=== PATIENT | male | born 1950 | race Caucasian/White ===

== ENCOUNTER 2018-11-17 22:56 | Emergency (ER) | payer OTHER ==
[~2018-11-17] VITALS: Ht 165.1 cm; Wt 118.4 kg
[~2018-11-17 22:56] MED LIST: AMLO5 PO; COMBIVENT RESPIM4 GM INH; CRUTCH2 XX; FLUSAL2505 INH; Flonase 0.05% N16 GM; HYDACE10B; HYDACE10B PO; HYDACE5325 PO; HYDCHL25; HYDR1TAB94 PO; IBUP600 PO; INSULANPEN SC; LISI20 PO; METF500 PO; OMEG1CAP30 PO; PIOG15 PO; PREG50 PO; Percocet 5-3251 EACH PO; Prednisone20 MG PO; RXCLIN PO; Robaxin500 MG PO; SULTRIDS PO; Simvastatin20 MG PO; TRIA80TC TOP
[2018-11-18] MEDS ORDERED: BUDE10.22 INH (01:55)
== END 2018-11-18 03:04 | disposition home or self-care (01) ==
LOC: ER 22:56
DX: R44.1 Visual hallucinations (principal); Z88.8 Allergy status to other drugs, medicaments and biological substances; Z79.899 Other long term (current) drug therapy; Z79.4 Long term (current) use of insulin; E11.9 Type 2 diabetes mellitus without complications; I10 Essential (primary) hypertension; Z87.891 Personal history of nicotine dependence
CPT/HCPCS: 99283

== ENCOUNTER 2020-09-03 11:26 | Emergency (ER) | payer OTHER ==
[~2020-09-03] VITALS: Ht 165.1 cm; Wt 103.4 kg
[~2020-09-03 11:26] MED LIST changes: +BUDE10.22 INH
[2020-09-03 12:14] LABS: BASOPHILS ABSOLUTE AUTO 0.04 K/mm3 (0.00-0.23); BASOPHILS PERCENT AUTO 1 % (0-2); EOSINOPHILS ABSOLUTE AUTO 0.14 K/mm3 (0.00-0.68); EOSINOPHILS PERCENT AUTO 3 % (0-6); Hematocrit 44.2 % (37.0-53.0); Hemoglobin 15.1 g/dL (13.5-17.5); IMMATURE GRAN ABSOLUTE AUTO 0.01 K/mm3 (0.00-0.10); IMMATURE GRAN PERCENT AUTO 0 % (0-1); LYMPHOCYTES ABSOLUTE AUTO 1.34 K/mm3 (0.84-5.20); LYMPHOCYTES PERCENT AUTO 27 % (21-46); MONOCYTES ABSOLUTE AUTO 0.44 K/mm3 (0.16-1.47); MONOCYTES PERCENT AUTO 9 % (4-13); Mean Corpuscular HGB 32.1 pg (26.0-34.0); Mean Corpuscular HGB Conc 34.2 g/dL (31.5-36.5); Mean Corpuscular Volume 94 fL (80-100); Mean Platelet Volume 8.4 fL (9.1-12.4); NEUTROPHILS ABSOLUTE AUTO 2.98 K/mm3 (1.96-9.15); NEUTROPHILS PERCENT AUTO 60 % (41-73); Platelet Count 246 K/mm3 (150-400); RDW Coefficient Variation 12.6 % (11.7-14.2); White Blood Cell Count 4.95 K/mm3 (4.00-11.30)
[2020-09-03 12:37] LABS: Alanine Aminotransfer (ALT/SGP 28 U/L (12-78); Albumin/Globulin Ratio 1.1 (0.8-1.8); Alk Phos 126 U/L (50-136); Anion Gap 5 mmol/L (6-16); Aspartate Aminotrans (AST/SGOT 20 U/L (12-37); Bilirubin, Total 0.8 mg/dL (0.1-1.0); Blood Urea Nitrogen 21 mg/dL (8-24); Bun/Creatinine Ratio 28.3 (12.0-20.0); C-REACTIVE PROTEIN, EXT RANGE 0.725 mg/dL (0.000-0.300); CO2, Blood 28 mmol/L (21-32); Calcium, Blood 9.2 mg/dL (8.5-10.1); Chloride, Blood 110 mmol/L (98-108); Creatinine, Blood 0.74 mg/dL (0.60-1.20); Globulin, Blood 3.8 g/dL (2.2-4.0); Glomerular Filtration Rate >60 (60-); Glucose, Blood 120 mg/dL (70-99); Potassium, Blood 3.7 mmol/L (3.5-5.5); Sodium, Blood 143 mmol/L (136-145); Total Protein, Blood 7.8 g/dL (6.4-8.2)
[2020-09-03] MEDS ORDERED: AMLO5 PO (12:58)
[2020-09-03] MEDS ORDERED: Bactrim Ds Tab1 EACH PO (14:41)
[2020-09-03] MEDS ORDERED: CEPH500 PO (14:41)
== END 2020-09-03 14:49 | disposition home or self-care (01) ==
LOC: ER 11:26
PROVIDERS: Physician Assistant
DX: L03.115 Cellulitis of right lower limb (principal); F22 Delusional disorders; S80.811A Abrasion, right lower leg, initial encounter; E11.9 Type 2 diabetes mellitus without complications; J44.9 Chronic obstructive pulmonary disease, unspecified; Z88.6 Allergy status to analgesic agent; Z79.4 Long term (current) use of insulin; Z87.891 Personal history of nicotine dependence; Z79.899 Other long term (current) drug therapy; X58.XXXA Exposure to other specified factors, initial encounter
CPT/HCPCS: 36415; 80053; 85025; 85651; 86140; 99283; A9270-GY

== ENCOUNTER 2021-06-04 07:29 | Day surgery (SDC) | payer OTHER ==
[~2021-06-04] VITALS: Ht 165.1 cm; Wt 96.1 kg
[~2021-06-04 07:29] MED LIST changes: +Bactrim Ds Tab1 EACH PO; +CEPH500 PO; +DICLOFENAC SOD100 GM; +FLUT.05NI; +IBU600 M1; +INSULANI; +SYMBICORT 80-10.2 GM
[2021-06-04] MEDS ORDERED: ASPI81CH PO (08:33)
--- NOTE | 2021-06-04 08:40 | NUR ---
06/04/21 0840 Claribel Ely (Alena MONDRAGONET IN AT 0820.
== END 2021-06-04 10:00 | disposition home or self-care (01) ==
LOC: ORSCSDS 07:29
PROVIDERS: Ophthalmology
PROC: 08RJ3JZ Replacement of Right Lens with Synthetic Substitute, Percutaneous Approach (ICD-10-PCS; principal; 2021-06-04 09:15)
DX: H25.11 Age-related nuclear cataract, right eye (principal); I10 Essential (primary) hypertension; E11.9 Type 2 diabetes mellitus without complications; Z79.899 Other long term (current) drug therapy; E66.9 Obesity, unspecified; Z68.34 Body mass index [BMI] 34.0-34.9, adult
CPT/HCPCS: 82947; J2001; J2250; J3010; J3301; J7040; V2632

== ENCOUNTER 2021-06-25 10:14 | Day surgery (SDC) | payer OTHER ==
[~2021-06-25] VITALS: Ht 165.1 cm; Wt 92.9 kg
[~2021-06-25 10:14] MED LIST changes: +ASPI81CH PO
--- NOTE | 2021-06-25 13:14 | NUR ---
06/25/21 1314 Agustin Browning CALL LIGHT WITHIN REACH. EYE DROP AND PLEDGETT PLACED AT 1300.
== END 2021-06-25 14:29 | disposition home or self-care (01) ==
LOC: ORSCSDS 10:14
PROVIDERS: Ophthalmology
PROC: 08RK3JZ Replacement of Left Lens with Synthetic Substitute, Percutaneous Approach (ICD-10-PCS; principal; 2021-06-25 12:00)
DX: H25.12 Age-related nuclear cataract, left eye (principal); I10 Essential (primary) hypertension; E11.9 Type 2 diabetes mellitus without complications; E66.9 Obesity, unspecified; Z68.34 Body mass index [BMI] 34.0-34.9, adult; Z79.82 Long term (current) use of aspirin; Z79.899 Other long term (current) drug therapy
CPT/HCPCS: 82947; J2001; J2250; J3010; J3301; J7040; V2632

== ENCOUNTER 2022-03-29 12:55 | Emergency (ER) | payer OTHER ==
[~2022-03-29] VITALS: Ht 165.1 cm; Wt 84.8 kg
[2022-03-29] MEDS ORDERED: SULTRIDS PO (16:05)
[2022-03-29] MEDS ORDERED: CEPH500 PO (16:05)
== END 2022-03-29 16:26 | disposition home or self-care (01) ==
LOC: ER 12:55
DX: L03.116 Cellulitis of left lower limb (principal); L03.115 Cellulitis of right lower limb; F22 Delusional disorders; E11.9 Type 2 diabetes mellitus without complications; I10 Essential (primary) hypertension; J44.9 Chronic obstructive pulmonary disease, unspecified; Z87.891 Personal history of nicotine dependence
CPT/HCPCS: 36415; A9270

== ENCOUNTER 2023-07-12 13:59 | Inpatient (IN) | payer OTHER ==
[~2023-07-12] VITALS: Ht 165.1 cm; Wt 66.4 kg
[2023-07-12 16:13] LABS: Source, Urine Clean Catch
[2023-07-12 16:23] LABS: Appearance, Urine Bloody (Clear); Bilirubin, Urine Neg (Neg); Blood, Urine 5+ (Neg); Color, Urine Red (P-Yellow); Glucose Qualitative, Urine Neg (Neg); Ketones, Urine 1+ (Neg); Leukocyte Esterase, Urine 3+ (Neg); Nitrite, Urine Neg (Neg); Protein, Urine 4+ (Neg); Urobilinogen, Urine NORM (Normal)
[2023-07-12 16:35] LABS: Bacteria Many /hpf; Red Blood Cells, Urine TNTC /hpf (0-2); Squamous Epithelial Cells Not Seen /hpf (Few); White Blood Cells, Urine TNTC /hpf (0-5)
[2023-07-12 19:21] LABS: Albumin, Blood 2.8 g/dL (3.4-5.0); Albumin/Globulin Ratio 0.5 (0.8-1.8); Bilirubin, Total 0.3 mg/dL (0.1-1.0); Bun/Creatinine Ratio 17.5 (12.0-20.0); Calcium, Blood 8.1 mg/dL (8.5-10.1); Creatinine, Blood 3.31 mg/dL (0.60-1.20); Globulin, Blood 5.2 g/dL (2.2-4.0); Potassium, Blood 4.9 mmol/L (3.5-5.5)
[2023-07-12 20:32] LABS: BASOPHILS ABSOLUTE AUTO 0.08 K/mm3 (0.00-0.23); BASOPHILS PERCENT AUTO 1 % (0-2); EOSINOPHILS ABSOLUTE AUTO 0.15 K/mm3 (0.00-0.68); EOSINOPHILS PERCENT AUTO 3 % (0-6); Hematocrit 25.7 % (37.0-53.0); Hemoglobin 8.1 g/dL (13.5-17.5); IMMATURE GRAN ABSOLUTE AUTO 0.02 K/mm3 (0.00-0.10); IMMATURE GRAN PERCENT AUTO 0 % (0-1); LYMPHOCYTES ABSOLUTE AUTO 1.52 K/mm3 (0.84-5.20); LYMPHOCYTES PERCENT AUTO 25 % (21-46); MONOCYTES ABSOLUTE AUTO 0.85 K/mm3 (0.16-1.47); MONOCYTES PERCENT AUTO 14 % (4-13); Mean Corpuscular HGB 31.5 pg (26.0-34.0); Mean Corpuscular HGB Conc 31.5 g/dL (31.5-36.5); Mean Corpuscular Volume 100 fL (80-100); NEUTROPHILS ABSOLUTE AUTO 3.43 K/mm3 (1.96-9.15); NEUTROPHILS PERCENT AUTO 57 % (41-73); Platelet Count 384 K/mm3 (150-400); RDW Coefficient Variation 14.2 % (11.7-14.2); RDW Standard Deviation 51.8 fL (35.1-46.3); Red Blood Cell Count 2.57 M/mm3 (4.30-5.90); White Blood Cell Count 6.05 K/mm3 (4.00-11.30)
[2023-07-12 23:15] VITALS: BP 152/67
[2023-07-12] MEDS ORDERED: SYMBICORT 80-10.2 GM INH (23:55)
[2023-07-13] VITALS (51 sets, daily range): BP systolic 108–152; BP diastolic 46–88
[2023-07-13 03:35] LABS: BASOPHILS ABSOLUTE AUTO 0.04 K/mm3 (0.00-0.23); BASOPHILS PERCENT AUTO 1 % (0-2); EOSINOPHILS ABSOLUTE AUTO 0.17 K/mm3 (0.00-0.68); EOSINOPHILS PERCENT AUTO 4 % (0-6); Hematocrit 21.9 % (37.0-53.0); Hemoglobin 6.8 g/dL (13.5-17.5); IMMATURE GRAN ABSOLUTE AUTO 0.01 K/mm3 (0.00-0.10); IMMATURE GRAN PERCENT AUTO 0 % (0-1); LYMPHOCYTES ABSOLUTE AUTO 1.11 K/mm3 (0.84-5.20); LYMPHOCYTES PERCENT AUTO 26 % (21-46); MONOCYTES ABSOLUTE AUTO 0.63 K/mm3 (0.16-1.47); MONOCYTES PERCENT AUTO 15 % (4-13); Mean Corpuscular HGB 30.8 pg (26.0-34.0); Mean Corpuscular HGB Conc 31.1 g/dL (31.5-36.5); Mean Corpuscular Volume 99 fL (80-100); Mean Platelet Volume 7.9 fL (9.1-12.4); NEUTROPHILS ABSOLUTE AUTO 2.33 K/mm3 (1.96-9.15); NEUTROPHILS PERCENT AUTO 54 % (41-73); Platelet Count 288 K/mm3 (150-400); RDW Coefficient Variation 14.2 % (11.7-14.2); RDW Standard Deviation 51.7 fL (35.1-46.3); Red Blood Cell Count 2.21 M/mm3 (4.30-5.90); White Blood Cell Count 4.29 K/mm3 (4.00-11.30)
[2023-07-13 03:57] LABS: Albumin, Blood 2.3 g/dL (3.4-5.0); Albumin/Globulin Ratio 0.5 (0.8-1.8); Bilirubin, Total 0.3 mg/dL (0.1-1.0); Bun/Creatinine Ratio 16.2 (12.0-20.0); Calcium, Blood 7.8 mg/dL (8.5-10.1); Creatinine, Blood 3.39 mg/dL (0.60-1.20); Globulin, Blood 4.2 g/dL (2.2-4.0); Potassium, Blood 4.6 mmol/L (3.5-5.5); Total Protein, Blood 6.5 g/dL (6.4-8.2)
--- NOTE | 2023-07-13 06:10 | NUR ---
SHIFT SUMMARY ASSUMED CARE OF PATIENT FROM ED AT 2325 PATIENT REMAINED ALERT AND ORIENTED THROUGHOUT THE ENTIRETY OF THE SHIFT. HE IS WEAK, BUT ABLE TO REPOSITION INDEPENDENTLY IN BED FOR COMFORT. BP REMAINED STABLE DURING THE SHIFT; SR WITH PAC's NOTED. PATIENT REMAINED ON ROOM AIR DURING SHIFT WITH O2 SATURATIONS IN HIGH 90'S TO 100. NO BM DURING SHIFT, BUT PATIENT REPORTED MODERATE FLATULENCE. BEARD IN PLACE. HEMATURIA NOTED ON ADMISSION TO ICU, BUT BEARD IS NOW DRAINING YELLOW URINE WITH MODERATE SEDIMENT. PIV TO L WRIST, FLUSHES WELL WITH NO BLOOD RETURN. PIV TO L/AC, INFUSING BLOOD AT THIS TIME D/T LOW H&H. WILL CONTINUE TO MONITOR AND REPORT TO ONCOMING NURSE INDICATED.
--- NOTE | 2023-07-13 08:08 | NUR ---
AM NOTE... ASSUMED CARE OF PT AT 0700. HE CURRENTLY HAS 1 UNIT OF PRBCs RUNNING PER ORDERS. PT IS A&Ox4. HE IS IN SR w/PACs AND PVCs. BP IS STABLE WITH MAPS>65. TRACE EDEMA IS NOTED TO HIS BLE. L/S CLEAR T/O ON RA WITH O2 SATS>95%. BT PRESENT AND HYPERACTIVE, ABD IS SOFT AND NONTENDER TO PALPATION. BEARD IS PATENT AND DRAINING CLEAR LIGHT YELLOW URINE TO GRAVITY. PT DENIES ANY FLANK PAIN AT THE TIME OF THIS ASSESSMENT. PT IS NPO FOR POSSIBLE PROCEDURE WITH DR. BARR. 0815: DR. LAY AT THE BEDSIDE TO ASSESS THE PT. WILL CONTINUE TO MONITOR.
--- NOTE | 2023-07-13 13:26 | NUR ---
PT UPDATE.... PT WAS TAKEN FOR BILATERAL NEPHROSTOMIES BY DR. BARR, PT LEFT THE ROOM AT 1100 AND RETURNED AT 1320. PT IS VERY DROWSY, VS STABLE AT THIS TIME WITH MAPS>65, HR IN THE 70'S-80'S AND O2 SATS>95% ON RA. PT CURRENTLY DENIES ANY PAIN. PT HAD 950MLS OF PINK URINE IN THE BEARD CATH AND PINK URINE NOTED IN BOTH NEPHROSTOMY BAGS AT THE TIME OF ARRIVAL TO THE UNIT. CALL LIGHT IN REACH WILL CONTINUE TO MONITOR.
[2023-07-13 13:51] LABS: BASOPHILS ABSOLUTE AUTO 0.05 K/mm3 (0.00-0.23); BASOPHILS PERCENT AUTO 1 % (0-2); EOSINOPHILS ABSOLUTE AUTO 0.11 K/mm3 (0.00-0.68); EOSINOPHILS PERCENT AUTO 3 % (0-6); Hematocrit 27.6 % (37.0-53.0); Hemoglobin 8.8 g/dL (13.5-17.5); IMMATURE GRAN ABSOLUTE AUTO 0.02 K/mm3 (0.00-0.10); IMMATURE GRAN PERCENT AUTO 1 % (0-1); LYMPHOCYTES ABSOLUTE AUTO 0.91 K/mm3 (0.84-5.20); LYMPHOCYTES PERCENT AUTO 22 % (21-46); MONOCYTES ABSOLUTE AUTO 0.46 K/mm3 (0.16-1.47); MONOCYTES PERCENT AUTO 11 % (4-13); Mean Corpuscular HGB 31.2 pg (26.0-34.0); Mean Corpuscular HGB Conc 31.9 g/dL (31.5-36.5); Mean Corpuscular Volume 98 fL (80-100); Mean Platelet Volume 7.9 fL (9.1-12.4); NEUTROPHILS ABSOLUTE AUTO 2.62 K/mm3 (1.96-9.15); NEUTROPHILS PERCENT AUTO 63 % (41-73); Platelet Count 321 K/mm3 (150-400); RDW Coefficient Variation 14.5 % (11.7-14.2); RDW Standard Deviation 52.7 fL (35.1-46.3); Red Blood Cell Count 2.82 M/mm3 (4.30-5.90); White Blood Cell Count 4.17 K/mm3 (4.00-11.30)
--- NOTE | 2023-07-13 16:32 | NUR ---
PT TRANSFER.... PT TRANSFER TO MEDICAL FLOOR. PT'S FAMILY WAS UPDATED. REPORT GIVEN TO UMBERTO CASTANEDA. ALL OF PT'S BELONGINGS WERE PACKED AND SENT WITH THE PT. THE PT WAS MEDICATED FOR 10/10 PAIN TO HIS BILATERAL FLANK AREA D/T THE NEPHROSTOMY PLACEMENTS. NEPHROSTOMIES HAVE BEEN DRAINED Q2 HRS NEEDED. URINE IS STILL DARK PINK MORE SO ON THE LEFT THAN THE RIGHT. PT'S VS STABLE AT THE TIME OF TRANSFER.
--- NOTE | 2023-07-13 18:21 | NUR ---
THE PATIENT WAS TRANSFERRED FROM ICU #2 AT 1420, THE PATIENT IS IN PAIN FROM HIS NEPHROSTOMY TUBES PLACEMENTS, AND HAS TWO SMALL URINE BAGS THAT ARE Q2 EMPTYING. THE PATIENT IS WEEPINP OUT OF THE LEFT PLACEMENT AND COMPLAINS OF THE MOST PAIN THERE. THE PATIENT'S IS LIGHT RES, IN ALL THREE BAGS. THE PATIENT IS A&O X 3, AND IS RESTING AT THIS TIME, I WILL CONTINUE TO MONITOR.
[2023-07-14 04:16] VITALS: BP 131/59
[2023-07-14 05:04] LABS: BASOPHILS ABSOLUTE AUTO 0.03 K/mm3 (0.00-0.23); BASOPHILS PERCENT AUTO 0 % (0-2); EOSINOPHILS ABSOLUTE AUTO 0.01 K/mm3 (0.00-0.68); EOSINOPHILS PERCENT AUTO 0 % (0-6); Hematocrit 25.5 % (37.0-53.0); Hemoglobin 8.2 g/dL (13.5-17.5); IMMATURE GRAN ABSOLUTE AUTO 0.02 K/mm3 (0.00-0.10); IMMATURE GRAN PERCENT AUTO 0 % (0-1); LYMPHOCYTES ABSOLUTE AUTO 0.56 K/mm3 (0.84-5.20); LYMPHOCYTES PERCENT AUTO 7 % (21-46); MONOCYTES ABSOLUTE AUTO 0.43 K/mm3 (0.16-1.47); MONOCYTES PERCENT AUTO 5 % (4-13); Mean Corpuscular HGB 31.4 pg (26.0-34.0); Mean Corpuscular HGB Conc 32.2 g/dL (31.5-36.5); Mean Corpuscular Volume 98 fL (80-100); NEUTROPHILS ABSOLUTE AUTO 7.55 K/mm3 (1.96-9.15); NEUTROPHILS PERCENT AUTO 88 % (41-73); Platelet Count 325 K/mm3 (150-400); RDW Coefficient Variation 14.5 % (11.7-14.2); RDW Standard Deviation 51.6 fL (35.1-46.3); Red Blood Cell Count 2.61 M/mm3 (4.30-5.90)
--- NOTE | 2023-07-14 05:18 | NUR ---
END OF SHIFT SUMMARY PT CALM AND COOPERATIVE WITH CARE PROVIDED. VSS, PT A&O x3. PT ON TELEMETRY, SVT 105 BPM WAS IDENTIFIED. ATTENDING PHYSICIAN WAS NOTIFIED. CONTINUE TO MONITOR ANY CHANGES IN RHYTHM. NO C/O CHEST PAIN, SOB AND NO HEADACHE. PT RECEIVED IV FENTANYL AT 2234 FOR L FLANK PAIN. IN ADDITION, PO NORCO GIVEN AT 0118, BOTH EFFECTIVE. NEPHROSTOMY TUBES CONTINUE TO DRAIN WELL, MODERATE AMOUNTS OF OUTPUT. PT APPEARS TO BE RESTING COMFORTABLY AT 0400. CALL LIGHT WITHIN REACH, PT ABLE TO MAKE NEEDS KNOWN. WCTM.
[2023-07-14 05:21] LABS: Albumin, Blood 2.2 g/dL (3.4-5.0); Anion Gap 6 mmol/L (6-16); Blood Urea Nitrogen 47 mg/dL (8-24); Bun/Creatinine Ratio 16.4 (12.0-20.0); CO2, Blood 22 mmol/L (21-32); Calcium, Blood 7.9 mg/dL (8.5-10.1); Chloride, Blood 112 mmol/L (98-108); Creatinine, Blood 2.87 mg/dL (0.60-1.20); Glomerular Filtration Rate 22 (60-); Glucose, Blood 110 mg/dL (70-99); Magnesium, Blood 1.7 mg/dL (1.6-2.4); Potassium, Blood 4.5 mmol/L (3.5-5.5); Sodium, Blood 140 mmol/L (136-145)
[2023-07-14 07:14] VITALS: BP 118/58
[2023-07-14 15:16] VITALS: BP 152/79
--- NOTE | 2023-07-14 17:28 | NUR ---
THE PATIENT IS A&O X3, PLEASENT TO VISIT WITH AND FOLLOWS COMMANDS. THE PATIENT HAS BEEN UP TO HIS CHAIR, WALKING IN THE HALLWAYS (WITH PT). THE PATIENT'S TUBES ARE PRODUCING URINE, AND HE HAD HIS BEARD REMOVED THIS MORNING. THE PATIENT IS SLEEPING AT THIS TIME AFTER COMPLAINING OF PAIN,I WILL CONTINUE TO MONITOR.
[2023-07-14 19:23] VITALS: BP 149/84
[2023-07-15 04:05] VITALS: BP 134/75
--- NOTE | 2023-07-15 04:17 | NUR ---
END OF SHIFT SUMMARY PT A&O x3, VSS. NO OVERNIGHT EVENTS. PAIN MANAGED WITH PRN IV FENTANYL, PT C/O OF L AND R SIDE FLANK PAIN. NEPHROSTOMY TUBES PATENT AND DRAINING WELL. PT NO LONGER HAS BEARD CATH, MONITORING I'S & O'S THROUGHOUT THE SHIFT. PT SLEPT MUCH BETTER TONIGHT. PT HAD 10 BPM OF SVT, PT ASYMPTOMATIC. NO C/O CHEST PAIN, SHORTNESS OF BREATH, NO HEADACHES, NO DIAPHORESIS. CALL LIGHT WITHIN REACH, WCTM.
[2023-07-15 05:25] LABS: BASOPHILS ABSOLUTE AUTO 0.04 K/mm3 (0.00-0.23); BASOPHILS PERCENT AUTO 1 % (0-2); EOSINOPHILS PERCENT AUTO 2 % (0-6); Hematocrit 26.4 % (37.0-53.0); Hemoglobin 8.5 g/dL (13.5-17.5); IMMATURE GRAN ABSOLUTE AUTO 0.03 K/mm3 (0.00-0.10); IMMATURE GRAN PERCENT AUTO 0 % (0-1); LYMPHOCYTES PERCENT AUTO 13 % (21-46); MONOCYTES PERCENT AUTO 7 % (4-13); Mean Corpuscular HGB Conc 32.2 g/dL (31.5-36.5); Mean Corpuscular Volume 96 fL (80-100); Mean Platelet Volume 8.2 fL (9.1-12.4); NEUTROPHILS ABSOLUTE AUTO 6.51 K/mm3 (1.96-9.15); NEUTROPHILS PERCENT AUTO 77 % (41-73); Platelet Count 309 K/mm3 (150-400); RDW Coefficient Variation 14.1 % (11.7-14.2); RDW Standard Deviation 49.5 fL (35.1-46.3); Red Blood Cell Count 2.74 M/mm3 (4.30-5.90); White Blood Cell Count 8.48 K/mm3 (4.00-11.30)
[2023-07-15 05:53] LABS: Anion Gap 6 mmol/L (6-16); Blood Urea Nitrogen 42 mg/dL (8-24); CO2, Blood 22 mmol/L (21-32); Calcium, Blood 8.1 mg/dL (8.5-10.1); Chloride, Blood 113 mmol/L (98-108); Creatinine, Blood 2.47 mg/dL (0.60-1.20); Glomerular Filtration Rate 27 (60-); Glucose, Blood 95 mg/dL (70-99); Magnesium, Blood 1.7 mg/dL (1.6-2.4); Phosphorus, Blood 4.6 mg/dL (2.5-4.9); Potassium, Blood 4.4 mmol/L (3.5-5.5); Sodium, Blood 141 mmol/L (136-145)
[2023-07-15 08:35] VITALS: BP 131/82
[2023-07-15] MEDS ORDERED: VISBIOME 112.51 EACH PO (11:18)
[2023-07-15] MEDS ORDERED: CEPH250A PO (11:19)
--- NOTE | 2023-07-15 15:18 | NUR ---
Ambulatory Discharge instructions reviewed with patient. Patient verbalizes understanding. Copy given to patient to take home. Patient States Post-Procedure ride home has been arranged. Discharged via wheelchair to private car for ride home. THE PATIENT WAS DISCHARGED HOME WITH HIS FAMILY, AFTER A DISCHARGE DISCUSSION WAS HELD. THE PATIENT'S IV'S WERE REMOVED AND THE PATIENT STILL HAD HIS NEPHROSTOMY TUBES INPLACE AND DRAINING.
== END 2023-07-15 15:02 | disposition home or self-care (01) | DRG 690 ==
LOC: ER 13:59 → ICUE 22:54 → MEDS 07-13 16:39 → ENPENDDIS 07-15 10:05 → MEDS 07-15 15:02
PROVIDERS: Family Medicine; Student in an Organized Health Care Education/Training Program; ADMIT Internal Medicine
PROC: 0T783DZ Dilation of Bilateral Ureters with Intraluminal Device, Percutaneous Approach (ICD-10-PCS; principal; 2023-07-13)
PROC: 30233N1 Transfusion of Nonautologous Red Blood Cells into Peripheral Vein, Percutaneous Approach (ICD-10-PCS; 2023-07-13)
PROC: BT141ZZ Fluoroscopy of Kidneys, Ureters and Bladder using Low Osmolar Contrast (ICD-10-PCS; 2023-07-13)
PROC: BT43ZZZ Ultrasonography of Bilateral Kidneys (ICD-10-PCS; 2023-07-13)
DX: N13.6 Pyonephrosis (principal); I47.1 Supraventricular tachycardia; N99.820 Postprocedural hemorrhage of a genitourinary system organ or structure following a genitourinary system procedure; N17.9 Acute kidney failure, unspecified; E83.39 Other disorders of phosphorus metabolism; E88.09 Other disorders of plasma-protein metabolism, not elsewhere classified; J44.9 Chronic obstructive pulmonary disease, unspecified; N18.30 Chronic kidney disease, stage 3 unspecified; R31.0 Gross hematuria; E11.22 Type 2 diabetes mellitus with diabetic chronic kidney disease; I12.9 Hypertensive chronic kidney disease with stage 1 through stage 4 chronic kidney disease, or unspecified chronic kidney disease; B96.1 Klebsiella pneumoniae [K. pneumoniae] as the cause of diseases classified elsewhere; E86.9 Volume depletion, unspecified; D63.1 Anemia in chronic kidney disease; W18.30XA Fall on same level, unspecified, initial encounter; S00.83XA Contusion of other part of head, initial encounter; Z88.8 Allergy status to other drugs, medicaments and biological substances; Z79.899 Other long term (current) drug therapy; Z79.891 Long term (current) use of opiate analgesic; Z79.82 Long term (current) use of aspirin; Z79.52 Long term (current) use of systemic steroids; Z98.890 Other specified postprocedural states; Z87.891 Personal history of nicotine dependence
CPT/HCPCS: 36415; 36430; 50695; 51702; 51798; 70450; 74176; 76770; 76937; 80053; 80069; 81001; 82550; 83735; 84295; 85025; 86850; 86900; 86901; 86923; 87077; 87086; 87186; 94640; 94664; 94760; 96365; 97110; 97116; 97162; 99152; 99153; 99285-25; A9270; C1729; C1769; C1887; C1894; C2617; G0103; J0696; J0881; J2250; J3010; J7030; J7040; J7050; P9016; Q9967

== ENCOUNTER 2023-07-17 22:48 | Emergency (ER) | payer OTHER ==
[~2023-07-17] VITALS: Ht 165.1 cm; Wt 70.3 kg
[~2023-07-17 22:48] MED LIST changes: +CEPH250A PO; +SYMBICORT 80-10.2 GM INH; +VISBIOME 112.51 EACH PO
[2023-07-17 23:29] VITALS: BP 147/57
[2023-07-18 05:35] LABS: BASOPHILS ABSOLUTE AUTO 0.11 K/mm3 (0.00-0.23); BASOPHILS PERCENT AUTO 1 % (0-2); EOSINOPHILS ABSOLUTE AUTO 0.28 K/mm3 (0.00-0.68); EOSINOPHILS PERCENT AUTO 3 % (0-6); Hematocrit 29.1 % (37.0-53.0); Hemoglobin 9.7 g/dL (13.5-17.5); IMMATURE GRAN ABSOLUTE AUTO 0.08 K/mm3 (0.00-0.10); IMMATURE GRAN PERCENT AUTO 1 % (0-1); LYMPHOCYTES ABSOLUTE AUTO 1.76 K/mm3 (0.84-5.20); LYMPHOCYTES PERCENT AUTO 19 % (21-46); MONOCYTES ABSOLUTE AUTO 0.66 K/mm3 (0.16-1.47); MONOCYTES PERCENT AUTO 7 % (4-13); Mean Corpuscular HGB 31.4 pg (26.0-34.0); Mean Corpuscular HGB Conc 33.3 g/dL (31.5-36.5); Mean Corpuscular Volume 94 fL (80-100); Mean Platelet Volume 7.7 fL (9.1-12.4); NEUTROPHILS ABSOLUTE AUTO 6.64 K/mm3 (1.96-9.15); NEUTROPHILS PERCENT AUTO 70 % (41-73); Platelet Count 349 K/mm3 (150-400); RDW Coefficient Variation 13.9 % (11.7-14.2); RDW Standard Deviation 47.7 fL (35.1-46.3); Red Blood Cell Count 3.09 M/mm3 (4.30-5.90); White Blood Cell Count 9.53 K/mm3 (4.00-11.30)
[2023-07-18 05:59] LABS: Albumin, Blood 2.5 g/dL (3.4-5.0); Albumin/Globulin Ratio 0.5 (0.8-1.8); Bilirubin, Total 0.3 mg/dL (0.1-1.0); Bun/Creatinine Ratio 16.4 (12.0-20.0); Calcium, Blood 8.5 mg/dL (8.5-10.1); Creatinine, Blood 2.13 mg/dL (0.60-1.20); Globulin, Blood 4.7 g/dL (2.2-4.0); Potassium, Blood 4.3 mmol/L (3.5-5.5); Total Protein, Blood 7.2 g/dL (6.4-8.2)
== END 2023-07-18 06:44 | disposition home or self-care (01) ==
LOC: ER 22:48
PROVIDERS: Student in an Organized Health Care Education/Training Program
DX: T83.022A Displacement of nephrostomy catheter, initial encounter (principal); I10 Essential (primary) hypertension; E11.9 Type 2 diabetes mellitus without complications; J44.9 Chronic obstructive pulmonary disease, unspecified; Z88.6 Allergy status to analgesic agent; Z79.51 Long term (current) use of inhaled steroids; Z87.891 Personal history of nicotine dependence; X58.XXXA Exposure to other specified factors, initial encounter
CPT/HCPCS: 74176; 80053; 85025; 99283-25

== ENCOUNTER 2023-07-19 13:44 | Day surgery (SDC) | payer OTHER ==
[~2023-07-19] VITALS: Ht 165.1 cm; Wt 64.0 kg
[2023-07-19 14:32] VITALS: BP 93/62
[2023-07-19 15:44] VITALS: BP 97/76
--- NOTE | 2023-07-19 16:46 | NUR ---
PT VERBALIZE D/C INSTRUCTIONS. IV D/C CATHETER INTACT. ABD BINDER PLACES. NEPHROSTOMY TUBES DRAINING APPROPRIALY. PT DRESSES SELF WITH MINIMAL ASSISTANCE. D/C HOME VIA W/C.
== END 2023-07-19 23:21 | disposition home or self-care (01) ==
LOC: MHTC 13:44
DX: N13.30 Unspecified hydronephrosis (principal); J45.909 Unspecified asthma, uncomplicated; I10 Essential (primary) hypertension; E11.9 Type 2 diabetes mellitus without complications; Z88.5 Allergy status to narcotic agent; Z79.4 Long term (current) use of insulin
CPT/HCPCS: 76937; 99152; 99153; C1729; C1769; C1887; C1894; J2250; J3010; J7040; J7050; Q9967

== ENCOUNTER 2023-07-26 19:27 | Observation (INO) | payer OTHER ==
[~2023-07-26] VITALS: Ht 167.6 cm; Wt 65.1 kg
[2023-07-26] MEDS ORDERED: HYDROCODONE-AC1 EAC7 PO (23:36)
[2023-07-27 00:40] LABS: BASOPHILS ABSOLUTE AUTO 0.11 K/mm3 (0.00-0.23); BASOPHILS PERCENT AUTO 1 % (0-2); EOSINOPHILS ABSOLUTE AUTO 0.39 K/mm3 (0.00-0.68); EOSINOPHILS PERCENT AUTO 5 % (0-6); Hematocrit 26.5 % (37.0-53.0); Hemoglobin 8.4 g/dL (13.5-17.5); IMMATURE GRAN ABSOLUTE AUTO 0.01 K/mm3 (0.00-0.10); IMMATURE GRAN PERCENT AUTO 0 % (0-1); LYMPHOCYTES PERCENT AUTO 29 % (21-46); MONOCYTES ABSOLUTE AUTO 0.54 K/mm3 (0.16-1.47); MONOCYTES PERCENT AUTO 7 % (4-13); Mean Corpuscular HGB 31.5 pg (26.0-34.0); Mean Corpuscular HGB Conc 31.7 g/dL (31.5-36.5); Mean Corpuscular Volume 99 fL (80-100); Mean Platelet Volume 7.9 fL (9.1-12.4); NEUTROPHILS ABSOLUTE AUTO 4.47 K/mm3 (1.96-9.15); NEUTROPHILS PERCENT AUTO 58 % (41-73); Platelet Count 284 K/mm3 (150-400); RDW Coefficient Variation 14.3 % (11.7-14.2); RDW Standard Deviation 51.7 fL (35.1-46.3); Red Blood Cell Count 2.67 M/mm3 (4.30-5.90); White Blood Cell Count 7.72 K/mm3 (4.00-11.30)
[2023-07-27 01:26] LABS: Albumin, Blood 2.8 g/dL (3.4-5.0); Albumin/Globulin Ratio 0.7 (0.8-1.8); Bilirubin, Total 0.3 mg/dL (0.1-1.0); Bun/Creatinine Ratio 18.5 (12.0-20.0); Calcium, Blood 8.2 mg/dL (8.5-10.1); Creatinine, Blood 2.33 mg/dL (0.60-1.20); Potassium, Blood 4.6 mmol/L (3.5-5.5); Total Protein, Blood 6.8 g/dL (6.4-8.2)
[2023-07-27 08:00] VITALS: BP 106/53
[2023-07-27 08:59] LABS: Bun/Creatinine Ratio 17.2 (12.0-20.0); Calcium, Blood 8.3 mg/dL (8.5-10.1); Creatinine, Blood 2.32 mg/dL (0.60-1.20); Potassium, Blood 4.5 mmol/L (3.5-5.5)
[2023-07-27 14:53] VITALS: BP 107/52
--- NOTE | 2023-07-27 15:50 | NUR ---
FAMILY MEMBER PHONE CALL CONVERSATION/UPDATE: CALLED AND SPOKE WITH PATIENT'S CAREGIVER/DAUGHTER IN LAW TAWANNA. SHE CALLED EARLIER REQUESTING AN UPDATE ON THE PATIENT. CALLED TAWANNA BACK TO LET HER KNOW THAT WE ARE AWAITING A CONSULTATION WITH DR. BARR ON WHETHER THE L NEPHROSTOMY TUBE WILL BE RE-INSERTED OR NOT. DURING THE CONVERSATION TAWANNA SHARED WITH ME THAT SHE FELT THAT THE PATIENT NEEDED TO BE IN A BULK TRUCK DRIVER CARE FACILITY DUE TO HER INABILITY TO CONTINUE CARING FOR HIM SINCE SHE HAS A CAREGIVER OF HER OWN AND A WHO WORKS FULLTIME (THE PATIENT'S FATHER). TAWANNA STATED THAT IF THE PATIENT STILL REQUIRED THE NEPHROSTOMY TUBES SHE WOULD NOT BE ABLE TO TAKE CARE OF HIM. TAWANNA'S CAREGIVER WAS PRESENT AND TOOK OVER THE CONVERSATION AND STATED THAT TAWANNA COULD NOT CARE FOR THE PATIENT REGARDLESS DUE TO HAVING A HARD TIME TAKING CARE OF HER OWN CARE NEEDS AND THAT CARING FOR HIM ELEVATES HER BLOOD PRESSURE. I LET THE CAREGIVER AND TAWANNA KNOW THAT I WAS APPRECIATIVE OF THE INFORMATION AND THAT I WOULD SHARE IT WITH THE NURSE [employer] ACCESSORIES ATTACHER.
--- NOTE | 2023-07-27 18:19 | NUR ---
SHIFT SUMMARY: NEVILLE IS A 73 YEAR OLD MALE HERE FOR DISPLACING HIS L SIDED NEPHROSTOMY TUBE ON 07/26 WHEN HE HAD THEM BILTERALLY PLACED ON 07/13. HE IS A&O X 4, AWAITING CONSULATION WITH DR. BARR TO DISCUSS REPLACEMENT OF NEPHROSTOMY TUBE. PT IS PLEASANT AND COOPERATIVE WITH CARE, INDEPENDENT, BUT ADVISED TO CALL FOR ASSIST BEFORE GETTING UP. SITTING IN BEDSIDE CHAIR FOR DINNER, CALL LIGHT WITHIN REACH, NO SIGNS OF SYMPTOMS OF DISTRESS.
[2023-07-27 19:14] VITALS: BP 122/57
--- NOTE | 2023-07-27 21:23 | NUR ---
PT A&OX3 ANSWERS QUESTIONS APPROPERIATELY WITH SLIGHT SPEECH DELAY, LUNGS CLEAR BILAERALLY, APICAL HR 68, SLIGHT EDEMA TO LE STRONG EQUAL PEDAL PULSES, PT REPORTS PAIN IS TOLERABLE 2/10, LEFT DCD NEPHROSTOMY SITE APPEARS C/D/I NEGATIVE FOR REDDNESS DENIES TENDERNESS, RIGHT NEPHROSTOMY SITE DRESSING C/D/I DRAINING LIGHT YELLOW, PT AMBULATES WITH STANDBY ASSIST FORGES LIMITATIONS AND NEEDS REFORCEMENT OF NEPHROSTOMY CARE. HOB ELEVATED BED LOWERED GUSTAVO LIGHT WITHIN REACH. PT RESTING COMFORTABLY.
--- NOTE | 2023-07-28 04:40 | NUR ---
SHIFT SUMMARY - NO ACUTE CHANGES THROUGHOUT THIS SHIFT. PT HAS BEEN IMPULSIVE - BED ALARM ON FOR PT SAFETY. PT IS A SBA WITH FWW TO BRP, REORIENTING TO USE CALL LIGHT - PT RECEPTIVE. PT TOLERATED MECHANICAL SOFT DIET TONIGHT WITHOUT COMPLICATIONS. L NEPHROSTOMY SITE IS WNL - NO REDNESS FROM SITE AREA WHERE APPARENTLY THE NEPHROSTOMY TUBE WAS REMOVED ACCIDENTALLY AT HOME BY PT. R NEPHROSTOMY REMAINS IN PLACE AND IS DRAINING CLEAR YELLOW URINE. PT MADE NPO AT 0300 THIS AM - DR. BARR CONSULT IN PLACE. WILL CONTINUE TO MONITOR UNTIL AM SHIFT CHANGE. CALL LIGHT WITHIN REACH. BED IN LOW POSITION. BED ALARM ON.
[2023-07-28 07:10] VITALS: BP 102/54
[2023-07-28 15:08] VITALS: BP 102/57
--- NOTE | 2023-07-28 16:26 | NUR ---
Upon receiving a referral for spiritual care, I visited the patient. He tells me many stories of his life growing, his spiritual journey and the loved ones that he has care for during their final days of life. He expresses his concerns about his medical conditions and his fears. I normalize his experience and provide therapeutic listening, anxiety containment and prayer. Patient responded well and showed signs of reduced stress. I will continue to remain available to patient and family
--- NOTE | 2023-07-28 17:37 | NUR ---
SHIFT SUMMARY: NEVILLE IS A 73 YEAR OLD MALE HERE AWAITING RADIOLOGY INTERVENTION CONSULATION FOR DISPLACING HIS L NEPHROSTOMY TUBE; SITE LOOKS GOOD NO SIGNS OF INFECTION. THE R SIDE REMAINS IN PLACE WITH GOOD OUTPUT, NO SIGNS OF INFECTION, AND DRESSING INTACT. PT HAS REMAINED IN BED TODAY AND HAS BEEN NPO STATUS AWAITING POTENTIAL PROCEDURE FOR REPLACEMENT OF HIS L NEPHROSTOMY TUBE. NO SIGNS OF SYMPTOMS OF DISTRESS AND CALL LIGHT WITHIN REACH.
[2023-07-28 19:26] VITALS: BP 107/53
[2023-07-29 00:25] VITALS: BP 113/45
[2023-07-29 01:59] VITALS: BP 120/46
[2023-07-29 03:44] VITALS: BP 109/47
--- NOTE | 2023-07-29 05:22 | NUR ---
SHIFT SUMMARY PT WENT FOR L NEPHROSTOMY PLACEMENT. DR. BARR AWARE PT ATE DINNER, PROCEDURE OKAY TO STILL COMPLETE SINCE PT WOULD NOT BE PUT UNDER ANESTHESIA. PT RECEIVED NEPHROSTOMY, BILATERAL NEPHROSTOMY DRESSINGS CLEAN, DRY, AND INTACT, DRAINING WELL. PT SLEEPY UPON RETURN AND MUMBLING IN SLEEP. C/O FLANK PAIN ONCE WHICH RESOLVED WITH PRN NORCO ADMINISTRATION. NO OTHER EVENTS. FIRE SAFETY REVIEWED, NO IGNITION SOURCES.
[2023-07-29 07:10] VITALS: BP 114/50
[2023-07-29 08:27] LABS: BASOPHILS ABSOLUTE AUTO 0.07 K/mm3 (0.00-0.23); BASOPHILS PERCENT AUTO 1 % (0-2); EOSINOPHILS ABSOLUTE AUTO 0.17 K/mm3 (0.00-0.68); EOSINOPHILS PERCENT AUTO 3 % (0-6); Hematocrit 24.2 % (37.0-53.0); Hemoglobin 7.8 g/dL (13.5-17.5); IMMATURE GRAN ABSOLUTE AUTO 0.01 K/mm3 (0.00-0.10); IMMATURE GRAN PERCENT AUTO 0 % (0-1); LYMPHOCYTES ABSOLUTE AUTO 1.35 K/mm3 (0.84-5.20); LYMPHOCYTES PERCENT AUTO 22 % (21-46); MONOCYTES ABSOLUTE AUTO 0.47 K/mm3 (0.16-1.47); MONOCYTES PERCENT AUTO 8 % (4-13); Mean Corpuscular HGB 31.6 pg (26.0-34.0); Mean Corpuscular HGB Conc 32.2 g/dL (31.5-36.5); Mean Corpuscular Volume 98 fL (80-100); NEUTROPHILS ABSOLUTE AUTO 4.01 K/mm3 (1.96-9.15); NEUTROPHILS PERCENT AUTO 66 % (41-73); Platelet Count 259 K/mm3 (150-400); RDW Standard Deviation 50.2 fL (35.1-46.3); Red Blood Cell Count 2.47 M/mm3 (4.30-5.90); White Blood Cell Count 6.08 K/mm3 (4.00-11.30)
[2023-07-29 08:41] LABS: Albumin, Blood 2.4 g/dL (3.4-5.0); Anion Gap 2 mmol/L (6-16); Blood Urea Nitrogen 40 mg/dL (8-24); Bun/Creatinine Ratio 17.8 (12.0-20.0); CO2, Blood 27 mmol/L (21-32); Calcium, Blood 7.7 mg/dL (8.5-10.1); Chloride, Blood 113 mmol/L (98-108); Creatinine, Blood 2.25 mg/dL (0.60-1.20); Glomerular Filtration Rate 30 (60-); Glucose, Blood 96 mg/dL (70-99); Phosphorus, Blood 4.2 mg/dL (2.5-4.9); Potassium, Blood 4.2 mmol/L (3.5-5.5); Sodium, Blood 142 mmol/L (136-145)
--- NOTE | 2023-07-29 11:00 | NUR ---
ASSUMED CARE OF PT. WHILE ADMINISTERING MORNING MEDICATION, PT INQUIRED IF I WAS THEN SAID TO THIS NURSE "YOU HAVE VERY KISSABLE LIPS." THIS NURSE ANSWERED INFORMING THE PT I WAS JUST HIS NURSE AND THAT WAS NOT APPROPRIATE. PT HAS BILATERAL NEPHROSTOMIES, BANDAGES IN PLACE, SITE WNL, AND DRAINING YELLOW URINE (RIGHT) AND PINK TINGED URINE (LEFT). PT VERBALIZES DESIRE TO AMBULATE DUE TO NEEDING TO PASS A BOWEL MOVEMENT. DISCUSSED WITH DOCTOR AND GAVE PT PRUNE JUICE AND WILL ENCOURAGE AMBULATION PRIOR TO D/C. NO COMPLAINTS OF PAIN. VSS. NO ACUTE EVENTS NOTED. PT LEFT IN A POSITION OF SAFETY WITH NONSKIID SOCKS IN PLACE AND CALL LIGHT WITHIN REACH. PT UP IN CHAIR FOR BREAKFAST.
--- NOTE | 2023-07-29 11:52 | NUR ---
PT CAREGIVER CALLED, EXPRESSED NOT WANTING TO TAKE PT HOME. NOTIFIED. CARE MANAGEMENT CONSULTED, RESOURCE EDUCATION TO BE PROVIDED. PT AND OT EVALUATIONS TO BE PERFORMED PRIOR TO D/C.
--- NOTE | 2023-07-29 12:05 | NUR ---
PT FAMILY UPDATED ON CARE PLAN/ DISCHARGE PLANS. FAMILY RESPONDED WELL AND IS OPEN TO EDUCATING R/T CARING FOR PT NEPHROSTOMY AT HOME.
[2023-07-29] MEDS ORDERED: FAMO20 PO (13:59)
[2023-07-29] MEDS ORDERED: FEROSUL325 M1 PO (14:01)
--- NOTE | 2023-07-29 14:35 | NUR ---
SHIFT SUMMARY PT TO D/C HOME TODAY. PT AND OT ASSESSED AND CLEARED PT TO D/C HOME. VSS. PT AWAITING TRANSPORTATION HOME. NO ACUTE NEEDS AT THIS TIME.
--- NOTE | 2023-07-29 16:37 | NUR ---
PT D/RAYA HOME. LEFT VIA W/C, FAMILY MEMBER PROVIDED TRANSPORT. ALL BELONGINGS WITH PT. D/C EDUCATION PROVIDED TO PT AND FAMILY.
== END 2023-07-29 15:11 | disposition hospice, home (50) ==
LOC: ER 19:27 → ERHOLD 19:29 → ER 07-27 03:09 → ERHOLD 07-27 03:09 → MEDS 07-27 03:09 → ERHOLD 07-27 07:55 → MEDS 07-27 07:55 → ENPENDDIS 07-29 10:59 → MEDS 07-29 15:11
PROVIDERS: Emergency Medicine; Internal Medicine; ADMIT Internal Medicine
DX: T83.022A Displacement of nephrostomy catheter, initial encounter (principal); N13.30 Unspecified hydronephrosis; Y73.8 Miscellaneous gastroenterology and urology devices associated with adverse incidents, not elsewhere classified; N17.9 Acute kidney failure, unspecified; K80.20 Calculus of gallbladder without cholecystitis without obstruction; K42.9 Umbilical hernia without obstruction or gangrene; I70.0 Atherosclerosis of aorta; I12.9 Hypertensive chronic kidney disease with stage 1 through stage 4 chronic kidney disease, or unspecified chronic kidney disease; N18.4 Chronic kidney disease, stage 4 (severe); D63.1 Anemia in chronic kidney disease; J44.9 Chronic obstructive pulmonary disease, unspecified; Z88.6 Allergy status to analgesic agent; Z79.899 Other long term (current) drug therapy; Z87.891 Personal history of nicotine dependence
CPT/HCPCS: 36415; 50432; 74177; 80048; 80053; 80069; 85025; 94640; 94664; 94760; 96372; 97116; 97161; 97165; 97535; 99152; 99284-25; A9270; C1729; C1769; C1887; C1894; G0378; J1644; J2250; J3010; J7030; J7050; Q9967

== ENCOUNTER → 2023-08-23 | Outpatient (CLI) | payer OTHER ==
[~2023-08-23] MED LIST changes: +FAMO20 PO; +FEROSUL325 M1 PO; +HYDROCODONE-AC1 EAC7 PO
[2023-08-23 13:54] LABS: Alanine Aminotransfer (ALT/SGP 18 U/L (12-78); Albumin, Blood 3.1 g/dL (3.4-5.0); Albumin/Globulin Ratio 0.5 (0.8-1.8); Alk Phos 104 U/L (50-136); Anion Gap 4 mmol/L (6-16); Aspartate Aminotrans (AST/SGOT 18 U/L (12-37); Bilirubin, Direct <0.1 mg/dL (0.0-0.3); Bilirubin, Indirect Unable to Calculate mg/dL (0.1-0.7); Bilirubin, Total 0.3 mg/dL (0.1-1.0); Blood Urea Nitrogen 36 mg/dL (8-24); Bun/Creatinine Ratio 17.1 (12.0-20.0); CO2, Blood 25 mmol/L (21-32); Chloride, Blood 113 mmol/L (98-108); Globulin, Blood 6.4 g/dL (2.2-4.0); Glomerular Filtration Rate 32 (60-); Glucose, Blood 102 mg/dL (70-99); Phosphorus, Blood 3.2 mg/dL (2.5-4.9); Potassium, Blood 4.8 mmol/L (3.5-5.5); Sodium, Blood 142 mmol/L (136-145); Total Protein, Blood 9.5 g/dL (6.4-8.2)
[2023-08-23 14:11] LABS: Calcium, Blood 9.1 mg/dL (8.5-10.1)
== END ==
LOC: LAB 11:29 → LAB SHORT 11:29
PROVIDERS: Internal Medicine Nephrology
DX: N18.30 Chronic kidney disease, stage 3 unspecified (principal); D63.1 Anemia in chronic kidney disease; R76.9 Abnormal immunological finding in serum, unspecified; R94.5 Abnormal results of liver function studies; R94.6 Abnormal results of thyroid function studies; D51.8 Other vitamin B12 deficiency anemias; D52.8 Other folate deficiency anemias; D50.9 Iron deficiency anemia, unspecified
CPT/HCPCS: 80053; 82248; 82607; 84100; 85018

== ENCOUNTER → 2023-08-26 | Outpatient (CLI) | payer OTHER ==
[~2023-08-26] MED LIST changes: +MONDOXYNE NL100 MG PO
[2023-08-26 17:48] LABS: U Amphetamine Screen Not Detected; U Barbituate Screen Not Detected; U Benzodiazapine Screen Not Detected; U Buprenorphine Screen Not Detected; U Cannabinoids Screen Not Detected; U Cocaine Screen Not Detected; U Methadone Screen Not Detected; U Methamphetamine Screen Not Detected; U Opiates Screen Not Detected; U Oxycodone Screen Not Detected; U Phencyclidine Screen Not Detected; U Propoxyphene Screen Not Detected
== END ==
LOC: LAB 14:22 → LAB SHORT 14:22
PROVIDERS: Family Medicine
DX: Z51.81 Encounter for therapeutic drug level monitoring (principal); Z79.899 Other long term (current) drug therapy

== ENCOUNTER → 2023-09-08 | Outpatient (CLI) | payer OTHER | LOC: LAB 16:21 → LAB SHORT 16:21 | DX: L03.116 Cellulitis of left lower limb (principal) | CPT/HCPCS: 87070; 87075; 87077; 87147; 87186; 87205 ==

== ENCOUNTER 2023-09-11 14:08 | Emergency (ER) | payer OTHER ==
[~2023-09-11] VITALS: Ht 165.1 cm; Wt 68.5 kg
[~2023-09-11 14:08] MED LIST changes: -MONDOXYNE NL100 MG PO
[2023-09-11 15:01] LABS: BASOPHILS ABSOLUTE AUTO 0.07 K/mm3 (0.00-0.23); BASOPHILS PERCENT AUTO 1 % (0-2); EOSINOPHILS ABSOLUTE AUTO 0.19 K/mm3 (0.00-0.68); EOSINOPHILS PERCENT AUTO 3 % (0-6); Hematocrit 33.1 % (37.0-53.0); Hemoglobin 9.9 g/dL (13.5-17.5); IMMATURE GRAN ABSOLUTE AUTO 0.04 K/mm3 (0.00-0.10); IMMATURE GRAN PERCENT AUTO 1 % (0-1); LYMPHOCYTES ABSOLUTE AUTO 1.14 K/mm3 (0.84-5.20); LYMPHOCYTES PERCENT AUTO 19 % (21-46); MONOCYTES ABSOLUTE AUTO 0.47 K/mm3 (0.16-1.47); MONOCYTES PERCENT AUTO 8 % (4-13); Mean Corpuscular HGB 30.7 pg (26.0-34.0); Mean Corpuscular HGB Conc 29.9 g/dL (31.5-36.5); Mean Corpuscular Volume 103 fL (80-100); Mean Platelet Volume 9.9 fL (9.1-12.4); NEUTROPHILS PERCENT AUTO 68 % (41-73); Platelet Count 195 K/mm3 (150-400); RDW Coefficient Variation 14.1 % (11.7-14.2); RDW Standard Deviation 52.9 fL (35.1-46.3); Red Blood Cell Count 3.22 M/mm3 (4.30-5.90); White Blood Cell Count 6.01 K/mm3 (4.00-11.30)
[2023-09-11 15:17] LABS: Bun/Creatinine Ratio 17.9 (12.0-20.0); Creatinine, Blood 2.12 mg/dL (0.60-1.20)
[2023-09-11 15:45] VITALS: BP 126/64
[2023-09-11] MEDS ORDERED: CEPH500 PO (15:45)
[2023-09-11] MEDS ORDERED: MONDOXYNE NL100 MG PO (15:45)
== END 2023-09-11 16:02 | disposition home or self-care (01) ==
LOC: ER 14:08
PROVIDERS: Emergency Medicine
DX: T83.022A Displacement of nephrostomy catheter, initial encounter (principal); I12.9 Hypertensive chronic kidney disease with stage 1 through stage 4 chronic kidney disease, or unspecified chronic kidney disease; E11.22 Type 2 diabetes mellitus with diabetic chronic kidney disease; N18.9 Chronic kidney disease, unspecified; J44.9 Chronic obstructive pulmonary disease, unspecified; Z88.6 Allergy status to analgesic agent; Z79.51 Long term (current) use of inhaled steroids; Z79.899 Other long term (current) drug therapy; Z87.891 Personal history of nicotine dependence; X58.XXXA Exposure to other specified factors, initial encounter
CPT/HCPCS: 80048; 85025

== ENCOUNTER 2023-10-09 20:36 | Emergency (ER) | payer OTHER ==
[~2023-10-09] VITALS: Ht 172.7 cm; Wt 81.7 kg
[~2023-10-09 20:36] MED LIST changes: +MONDOXYNE NL100 MG PO
[2023-10-09 21:15] VITALS: BP 119/63
[2023-10-09] MEDS ORDERED: HYDROCODONE-AC1 EAC7 PO (21:27)
== END 2023-10-09 22:30 | disposition home or self-care (01) ==
LOC: ER 20:36
DX: S09.90XA Unspecified injury of head, initial encounter (principal); M25.551 Pain in right hip; M54.50 Low back pain, unspecified; W01.10XA Fall on same level from slipping, tripping and stumbling with subsequent striking against unspecified object, initial encounter; Z88.8 Allergy status to other drugs, medicaments and biological substances; Z79.899 Other long term (current) drug therapy; E11.22 Type 2 diabetes mellitus with diabetic chronic kidney disease; N18.30 Chronic kidney disease, stage 3 unspecified; I12.9 Hypertensive chronic kidney disease with stage 1 through stage 4 chronic kidney disease, or unspecified chronic kidney disease; D63.1 Anemia in chronic kidney disease; J44.9 Chronic obstructive pulmonary disease, unspecified; Z87.891 Personal history of nicotine dependence
CPT/HCPCS: 70450; 73502; 99284-25

== ENCOUNTER 2023-10-14 20:16 | Emergency (ER) | payer OTHER ==
[~2023-10-14] VITALS: Ht 165.1 cm; Wt 70.3 kg
[2023-10-14 23:07] LABS: BASOPHILS ABSOLUTE AUTO 0.06 K/mm3 (0.00-0.23); BASOPHILS PERCENT AUTO 0 % (0-2); EOSINOPHILS ABSOLUTE AUTO 0.05 K/mm3 (0.00-0.68); EOSINOPHILS PERCENT AUTO 0 % (0-6); Hematocrit 33.9 % (37.0-53.0); Hemoglobin 10.8 g/dL (13.5-17.5); IMMATURE GRAN ABSOLUTE AUTO 0.11 K/mm3 (0.00-0.10); IMMATURE GRAN PERCENT AUTO 1 % (0-1); LYMPHOCYTES ABSOLUTE AUTO 0.74 K/mm3 (0.84-5.20); LYMPHOCYTES PERCENT AUTO 4 % (21-46); MONOCYTES ABSOLUTE AUTO 0.98 K/mm3 (0.16-1.47); MONOCYTES PERCENT AUTO 6 % (4-13); Mean Corpuscular HGB 30.2 pg (26.0-34.0); Mean Corpuscular HGB Conc 31.9 g/dL (31.5-36.5); Mean Corpuscular Volume 95 fL (80-100); Mean Platelet Volume 8.5 fL (9.1-12.4); NEUTROPHILS ABSOLUTE AUTO 14.86 K/mm3 (1.96-9.15); NEUTROPHILS PERCENT AUTO 88 % (41-73); Platelet Count 381 K/mm3 (150-400); RDW Coefficient Variation 15.4 % (11.7-14.2); RDW Standard Deviation 53.1 fL (35.1-46.3); Red Blood Cell Count 3.58 M/mm3 (4.30-5.90)
[2023-10-14 23:31] LABS: Albumin, Blood 2.5 g/dL (3.4-5.0); Albumin/Globulin Ratio 0.6 (0.8-1.8); Bilirubin, Total 0.4 mg/dL (0.1-1.0); Bun/Creatinine Ratio 16.4 (12.0-20.0); Calcium, Blood 8.1 mg/dL (8.5-10.1); Creatinine, Blood 1.77 mg/dL (0.60-1.20); Globulin, Blood 4.5 g/dL (2.2-4.0); Potassium, Blood 5.2 mmol/L (3.5-5.5)
[2023-10-15 00:37] VITALS: BP 109/53
[2023-10-15 00:48] LABS: Influenza A, PCR NEGATIVE (NEGATIVE); Influenza B, PCR NEGATIVE (NEGATIVE); Resp Syncytial Virus, PCR NEGATIVE (NEGATIVE); SARS-Cov-2 (COVID-19) PCR, MMC NEGATIVE (NEGATIVE)
[2023-10-15] MEDS ORDERED: CEFD300 PO ×3 (00:49→15:59)
[2023-10-15] MEDS ORDERED: Zithromax250 MG PO ×3 (00:49→15:59)
== END 2023-10-15 00:59 | disposition home or self-care (01) ==
LOC: ER 20:16
PROVIDERS: Emergency Medicine
DX: J18.9 Pneumonia, unspecified organism (principal); I12.9 Hypertensive chronic kidney disease with stage 1 through stage 4 chronic kidney disease, or unspecified chronic kidney disease; E11.22 Type 2 diabetes mellitus with diabetic chronic kidney disease; N18.4 Chronic kidney disease, stage 4 (severe); D63.1 Anemia in chronic kidney disease; J44.9 Chronic obstructive pulmonary disease, unspecified; Z88.6 Allergy status to analgesic agent; Z79.51 Long term (current) use of inhaled steroids; Z79.899 Other long term (current) drug therapy
CPT/HCPCS: 0241U; 71250; 80053; 83605; 83880; 84145; 85025; 93005; 93010; 96374; 99284-25; A9270; J1885

== ENCOUNTER → 2023-12-16 | Outpatient (CLI) | payer OTHER ==
[~2023-12-16] MED LIST changes: +CEFD300 PO; +Zithromax250 MG PO
== END | disposition home or self-care (01) ==
LOC: LAB 15:37 → LAB SHORT 15:37
DX: N39.0 Urinary tract infection, site not specified (principal)
CPT/HCPCS: 87077; 87086; 87186

== ENCOUNTER → 2023-12-30 | Outpatient (CLI) | payer OTHER ==
[2023-12-30 16:09] LABS: Creatinine Urine 38.7 mg/dL (27.00-270.00); Protein, Urine Quantitative 47.6 mg/dL (0.0-11.9)
== END | disposition home or self-care (01) ==
LOC: LAB SHORT 14:56 → LAB 14:56 → LAB FUT 07-21 11:40
PROVIDERS: Internal Medicine Nephrology
DX: N18.30 Chronic kidney disease, stage 3 unspecified (principal); D63.1 Anemia in chronic kidney disease; R76.9 Abnormal immunological finding in serum, unspecified; R94.5 Abnormal results of liver function studies; R94.6 Abnormal results of thyroid function studies; N40.1 Benign prostatic hyperplasia with lower urinary tract symptoms; E29.1 Testicular hypofunction; N25.81 Secondary hyperparathyroidism of renal origin; E55.9 Vitamin D deficiency, unspecified
CPT/HCPCS: 81050; 82043; 82570; 84156

== ENCOUNTER → 2024-05-14 | Outpatient (CLI) | payer OTHER | END | disposition home or self-care (01) | LOC: LAB SHORT 16:23 → LAB 16:23 | DX: N39.0 Urinary tract infection, site not specified (principal) | CPT/HCPCS: 87077; 87086; 87186 ==

== ENCOUNTER → 2024-08-01 | Outpatient (CLI) | payer OTHER ==
[2024-08-01 12:41] LABS: Creatinine Urine 41.7 mg/dL (27.00-270.00); Protein, Urine Quantitative 91.6 mg/dL (0.0-11.9)
== END ==
LOC: LAB 09:43 → LAB SHORT 09:43
PROVIDERS: Internal Medicine Nephrology
DX: N18.30 Chronic kidney disease, stage 3 unspecified (principal); D63.1 Anemia in chronic kidney disease; N25.81 Secondary hyperparathyroidism of renal origin; E78.00 Pure hypercholesterolemia, unspecified; E29.1 Testicular hypofunction; R76.9 Abnormal immunological finding in serum, unspecified; R94.5 Abnormal results of liver function studies; R94.6 Abnormal results of thyroid function studies
CPT/HCPCS: 82043; 82570; 84156

== ENCOUNTER 2024-10-26 13:08 | Inpatient (IN) | payer OTHER ==
[~2024-10-26] VITALS: Ht 165.1 cm; Wt 76.2 kg
[2024-10-26] MEDS ORDERED: NS 1,000 ML IV ONE (13:43)
[2024-10-26] MEDS ORDERED: Heparin Sodium 1000 Units/ML 10ML MDV ONE ×2 (13:43→14:21)
[2024-10-26] MEDS ORDERED: NS 250 ML IV ONE (13:45)
[2024-10-26] MEDS ORDERED: FentaNYL Citrate 50 MCG/ML 2 ML Injection ONE (14:07)
[2024-10-26] MEDS ORDERED: Midazolam HCl 1MG / ML 2ML Vial ONE (14:07)
[2024-10-26 14:14] LABS: BASOPHILS ABSOLUTE AUTO 0.07 K/mm3 (0.00-0.23); BASOPHILS PERCENT AUTO 1 % (0-2); EOSINOPHILS PERCENT AUTO 4 % (0-6); Hematocrit 31.4 % (37.0-53.0); Hemoglobin 10.1 g/dL (13.5-17.5); IMMATURE GRAN ABSOLUTE AUTO 0.02 K/mm3 (0.00-0.10); IMMATURE GRAN PERCENT AUTO 0 % (0-1); LYMPHOCYTES ABSOLUTE AUTO 1.04 K/mm3 (0.84-5.20); LYMPHOCYTES PERCENT AUTO 18 % (21-46); MONOCYTES ABSOLUTE AUTO 0.52 K/mm3 (0.16-1.47); MONOCYTES PERCENT AUTO 9 % (4-13); Mean Corpuscular HGB Conc 32.2 g/dL (31.5-36.5); Mean Corpuscular Volume 96 fL (80-100); Mean Platelet Volume 7.6 fL (9.1-12.4); NEUTROPHILS ABSOLUTE AUTO 3.84 K/mm3 (1.96-9.15); NEUTROPHILS PERCENT AUTO 68 % (41-73); Platelet Count 285 K/mm3 (150-400); RDW Coefficient Variation 14.8 % (11.7-14.2); RDW Standard Deviation 52.3 fL (35.1-46.3); Red Blood Cell Count 3.26 M/mm3 (4.30-5.90); White Blood Cell Count 5.69 K/mm3 (4.00-11.30)
[2024-10-26 14:37] LABS: Albumin/Globulin Ratio 0.6 (0.8-1.8); Bilirubin, Total 0.4 mg/dL (0.1-1.0); Bun/Creatinine Ratio 16.3 (12.0-20.0); Calcium, Blood 8.5 mg/dL (8.5-10.1); Creatinine, Blood 4.1 mg/dL (0.60-1.20); Globulin, Blood 5.1 g/dL (2.2-4.0); Magnesium, Blood 2.2 mg/dL (1.6-2.4); Potassium, Blood 4.1 mmol/L (3.5-5.5); Total Protein, Blood 8.1 g/dL (6.4-8.2)
--- NOTE | 2024-10-26 14:50 | NUR ---
full procedural report given to [facility] floor rn. no further questions asked.
[2024-10-26] MEDS ORDERED: FLU VACC TS2024-25(6MOS UP)/PF 45 MCG/0.5 ML SYRINGE IM SCH (14:55)
[2024-10-26] MEDS ORDERED: TraZODone HCl 50 MG Tab PO PRN (15:00)
[2024-10-26] MEDS ORDERED: Bisacodyl 10 MG Supp PR PRN (15:00)
[2024-10-26] MEDS ORDERED: Ondansetron 4 MG TAB PO PRN (15:00)
[2024-10-26] MEDS ORDERED: Ipratropium/Albuterol SulF 2.5-0.5MG/3 ML Amp INH PRN (15:00)
[2024-10-26] MEDS ORDERED: Magnesium Hydroxide Conc 10 ML UDC PO PRN (15:00)
[2024-10-26] MEDS ORDERED: HydrALAZINE HCl 20 MG / ML 1ML Vial IV PRN (15:05)
[2024-10-26] MEDS ORDERED: HYDROcodone 10-APAP 325 TAB PO PRN (15:05)
[2024-10-26] MEDS ORDERED: Mometasone/Formoterol MDI 100/5 mcg 13 GM INH SCH (15:05)
[2024-10-26 15:07] VITALS: BP 110/48
[2024-10-26] MEDS ORDERED: TAMS.4ER PO (15:44)
[2024-10-26] MEDS ORDERED: SODBIC650 PO (15:44)
--- NOTE | 2024-10-26 15:47 | NUR ---
ADMISSION NOTE: PATIENT ARRIVED VIA WHEELCHAIR AT 1445 FROM THE [facility] [employer] [facility]. PATIENT WAS ALERT ADN WAS ABLE TO SELF TRANSFER TO THE RESTROOM, CHANGE HIS OWN PULL UP, AND GET INTO BED. PATIENT SETTLED IN BED, CALL LIGHT PROVIDED, NO SIGNS OR SYMPTOMS OF DISTRESS, PLAN OF ONGOING; PLAN IS FOR THE PATIENT TO GET HEMODIALYSIS TONIGHT.
[2024-10-26] MEDS ORDERED: Insulin Human Lispro 100 Units/ML 3ML Syringe SC SCH (16:30)
--- NOTE | 2024-10-26 17:19 | NUR ---
SHIFT SUMMARY: PATIENT IN BED, CALL LIGHT WITHIN REACH, NO SIGNS OR SYMPTOMS OF DISTRESS, PLAN OF CARE ONGOING. HEMODIALYSIS IN THE MORNING PER LISA.
[2024-10-26 19:20] VITALS: BP 119/46
[2024-10-26] MEDS ORDERED: Lactobacil 2-S.Thermo-Bifido 1 1 Cap PO SCH (21:00)
[2024-10-27] VITALS (10 sets, daily range): BP systolic 92–154; BP diastolic 49–105
--- NOTE | 2024-10-27 04:08 | NUR ---
SHIFT SUMMARY: PT AOX4 VITAL SIGNS STABLE. ASKED FOR SOME TRAZODONE TO HELP SLEEP AND HAS SLEPT THROUGH MOST OF THE NIGHT ONLY WAKING UP A FEW TIMES TO USE THE RESTROOM AND SUCH. DENIES PAIN AT THE PERMACATH SITE. SITE AND DRESSING CLEAN, DRY, AND INTACT. TOLERATING PO MEDICATIONS WELL AND IN PLEASANT MOOD AND AFFECT. PT CALLS APPROPRIATELY. RESTING IN BED, BED IN LOWEST POSITION, CALL LIGHT IN REACH. CONTINUING CARE.
[2024-10-27 05:04] LABS: BASOPHILS ABSOLUTE AUTO 0.06 K/mm3 (0.00-0.23); BASOPHILS PERCENT AUTO 1 % (0-2); EOSINOPHILS ABSOLUTE AUTO 0.19 K/mm3 (0.00-0.68); EOSINOPHILS PERCENT AUTO 4 % (0-6); Hematocrit 26.4 % (37.0-53.0); Hemoglobin 8.5 g/dL (13.5-17.5); IMMATURE GRAN ABSOLUTE AUTO 0.01 K/mm3 (0.00-0.10); IMMATURE GRAN PERCENT AUTO 0 % (0-1); LYMPHOCYTES ABSOLUTE AUTO 1.11 K/mm3 (0.84-5.20); LYMPHOCYTES PERCENT AUTO 21 % (21-46); MONOCYTES ABSOLUTE AUTO 0.55 K/mm3 (0.16-1.47); MONOCYTES PERCENT AUTO 10 % (4-13); Mean Corpuscular HGB 30.5 pg (26.0-34.0); Mean Corpuscular HGB Conc 32.2 g/dL (31.5-36.5); Mean Corpuscular Volume 95 fL (80-100); Mean Platelet Volume 7.7 fL (9.1-12.4); NEUTROPHILS ABSOLUTE AUTO 3.37 K/mm3 (1.96-9.15); NEUTROPHILS PERCENT AUTO 64 % (41-73); Platelet Count 257 K/mm3 (150-400); RDW Coefficient Variation 14.8 % (11.7-14.2); Red Blood Cell Count 2.79 M/mm3 (4.30-5.90); White Blood Cell Count 5.29 K/mm3 (4.00-11.30)
[2024-10-27 05:42] LABS: Albumin, Blood 2.6 g/dL (3.4-5.0); Albumin/Globulin Ratio 0.6 (0.8-1.8); Bilirubin, Total 0.4 mg/dL (0.1-1.0); Bun/Creatinine Ratio 16.2 (12.0-20.0); Calcium, Blood 8.3 mg/dL (8.5-10.1); Creatinine, Blood 4.32 mg/dL (0.60-1.20); Globulin, Blood 4.3 g/dL (2.2-4.0); Magnesium, Blood 2.2 mg/dL (1.6-2.4); Phosphorus, Blood 4.9 mg/dL (2.5-4.9); Total Protein, Blood 6.9 g/dL (6.4-8.2)
[2024-10-27] MEDS ORDERED: Anticoagulant Sod Citrate Soln 3 ML SYR INJ PRN (07:10)
[2024-10-27] MEDS ORDERED: Heparin Sodium 5000 Units/ML 1ML MDV SC SCH (09:00)
[2024-10-27] MEDS ORDERED: Famotidine 20 MG Tab PO SCH (09:00)
[2024-10-27] MEDS ORDERED: Darbepoetin Alfa in Polysorbat 25 MCG/0.42 ML Syringe SC SCH (16:00)
[2024-10-28] VITALS (16 sets, daily range): BP systolic 76–143; BP diastolic 39–74
--- NOTE | 2024-10-28 03:40 | NUR ---
SHIFT SUMMARY: PT IS A PLEASANT 74 YO FULL CODE WHO WAS ADMITTED FOR DIALYSIS PORT PLACEMENT. PT IS WAITING FOR A CHAIR AVAILABILITY FOR OUTPATIENT HEMODIALYSIS BEFORE HE IS D/C. PT IS IND IN ROOM AND A&OX4. PT DID NOT NEED HIS NIGHT TIME INSULIN AND HAS BEEN USING THE BATHROOM NEEDED AND HAD A BM TONIGHT. PT SPENT THE FIRST BIT OF THE EVENING WATCHING TV AND NOW HAS BEEN RESTING WITH THE CALL LIGHT CLOSE. PT EXPRESSES HIS NEEDS.
[2024-10-28 04:56] LABS: Hemoglobin 8.3 g/dL (13.5-17.5)
[2024-10-28 05:36] LABS: Albumin, Blood 2.5 g/dL (3.4-5.0); Anion Gap 13 mmol/L (3-11); Blood Urea Nitrogen 52 mg/dL (8-24); Bun/Creatinine Ratio 12.8 (12.0-20.0); CO2, Blood 26 mmol/L (21-32); Chloride, Blood 104 mmol/L (98-108); Creatinine, Blood 4.05 mg/dL (0.60-1.20); Glomerular Filtration Rate 15 (60-); Glucose, Blood 99 mg/dL (70-99); Magnesium, Blood 2.1 mg/dL (1.6-2.4); Potassium, Blood 3.3 mmol/L (3.5-5.5); Sodium, Blood 140 mmol/L (136-145)
[2024-10-28] MEDS ORDERED: Potassium Chloride 10 Meq Tablet SA PO ONE (06:20)
[2024-10-28] MEDS ORDERED: Anticoagulant Sod Citrate Soln 3 ML SYR INJ PRN (07:20)
--- NOTE | 2024-10-28 18:31 | NUR ---
THIS RN GAVE AN UPDATE TO YESENIA, FROM [facility], ON PT STATUS UPDATE AND PLAN OF CARE FOR HIM.
--- NOTE | 2024-10-28 18:34 | NUR ---
NEVILLE HAS A PERMACATH TO RIGHT UPPER CHEST WALL. HE IS FOLLOWED BY DR. GONZALEZ. ATTENDED DIALYSIS TODAY, STATED HE FELT MUCH BETTER AFTER DIALYSIS. REPORTS FREQUENT, SMALL AMOUNTS OF URINE AT BASELINE.CHRONIC LOWER BACK PAIN TREATED WITH PRN MEDICATION AND HEATING K-PAD. GOOD APPETITE. ROOM AIR. REPORTS A LARGE BM TODAY. ABLE TO USE CALL LIGHT APPROPRIATELY.
[2024-10-29] VITALS (14 sets, daily range): BP systolic 87–139; BP diastolic 33–100
--- NOTE | 2024-10-29 04:03 | NUR ---
PT REPORTS FEELING WELL TODAY EVEN AFTER DIALYSIS THESE LAST COUPLE DAYS. PT USES CALL LIGHT AND MAKES NEEDS KNOWN. PT DID NOT REQUIRE INSULIN TONIGHT AND DID HAVE SOME LOW BP'S BUT ARE NOW RESOLVED.PT IS PLEASANT AND HAS A POSITIVE ATTITUDE TOWARDS HIS CARE. CALL LIGHT IN REACH AND PT IS SLEEPING.
[2024-10-29 05:13] LABS: Hematocrit 25.1 % (37.0-53.0); Hemoglobin 8.3 g/dL (13.5-17.5)
[2024-10-29 05:34] LABS: Albumin, Blood 2.4 g/dL (3.4-5.0); Anion Gap 10 mmol/L (3-11); Blood Urea Nitrogen 38 mg/dL (8-24); Bun/Creatinine Ratio 10.3 (12.0-20.0); CO2, Blood 29 mmol/L (21-32); Calcium, Blood 8.5 mg/dL (8.5-10.1); Chloride, Blood 104 mmol/L (98-108); Creatinine, Blood 3.69 mg/dL (0.60-1.20); Glomerular Filtration Rate 16 (60-); Glucose, Blood 101 mg/dL (70-99); Phosphorus, Blood 3.2 mg/dL (2.5-4.9); Potassium, Blood 3.2 mmol/L (3.5-5.5); Sodium, Blood 140 mmol/L (136-145)
[2024-10-29] MEDS ORDERED: Potassium Chloride 20 MEQ TabCR PO ONE (05:50)
[2024-10-29] MEDS ORDERED: Anticoagulant Sod Citrate Soln 3 ML SYR INJ PRN (07:10)
[2024-10-29 08:33] LABS: HEPATITIS B SURFACE ANTIBODY <3.10 IU/L
[2024-10-29 11:42] LABS: HEPATITIS A ANTIBODY, IGM Negative (Negative); HEPATITIS B CORE ANTIBODY, IGM Negative (Negative); HEPATITIS B SURFACE ANTIGEN Negative (Negative); HEPATITIS C AB CIA INTERP Negative (Negative); HEPATITIS C ANTIBODY CIA INDEX 0.15 IV
--- NOTE | 2024-10-29 16:17 | NUR ---
PT PLEASANT TODAY. STATES READY TO GO HOME. PENDING CHAIR TIME AT [facility] DIAL[facility]. PT IND IN ROOM. STATES FEELING BETTER OVERALL. DIALYSIS TODAY. NO NEW CONCERNS NOTED TODAY. BED IN LOW POSITION, CALL LITE IN REACH, CALLS APPROP
[2024-10-30] VITALS (15 sets, daily range): BP systolic 94–148; BP diastolic 45–66
--- NOTE | 2024-10-30 03:34 | NUR ---
SHIFT SUMM: PT HAD DIALYSIS FOR DAYSHIFT AND IN GOOD SPIRITS AND SEEMS TO BE FEELING GOOD AND LESS URGENCY EPISODES W/URINE. PT RECEIVED PAIN MEDICATION AND VITALS WERE LOW BUT STIL WNL FOR THIS PT AND HIS HIST OF DIALYSIS. PT WEARS PULL UPS FOR MOMENTS OF INCONT.PT CALLS WHEN HE NEEDS HELP WITH SOMETHING AND HAS BEEN IND IN ROOM AND ENJOYING HIS TV SHOW. PT DID NOT NEED INSULIN THIS EVEING AND IS NOW ASLEEP W/CALL LIGHT CLOSE. PT IS CURRENTLY WAITING FOR A CHAIR TO BECOME AVAILABLE AT [facility] SO HE CAN START RECEIVING HEMODIALYSIS AN OUTPATIENT.
[2024-10-30 05:34] LABS: Hematocrit 23.9 % (37.0-53.0); Hemoglobin 7.8 g/dL (13.5-17.5)
[2024-10-30 06:16] LABS: Albumin, Blood 2.4 g/dL (3.4-5.0); Anion Gap 10 mmol/L (3-11); Blood Urea Nitrogen 34 mg/dL (8-24); Bun/Creatinine Ratio 9.2 (12.0-20.0); CO2, Blood 31 mmol/L (21-32); Calcium, Blood 8.7 mg/dL (8.5-10.1); Chloride, Blood 100 mmol/L (98-108); Creatinine, Blood 3.69 mg/dL (0.60-1.20); Glomerular Filtration Rate 16 (60-); Glucose, Blood 130 mg/dL (70-99); Magnesium, Blood 1.9 mg/dL (1.6-2.4); Phosphorus, Blood 2.7 mg/dL (2.5-4.9); Potassium, Blood 3.3 mmol/L (3.5-5.5); Sodium, Blood 138 mmol/L (136-145)
[2024-10-30] MEDS ORDERED: Potassium Chloride 20 MEQ TabCR PO ONE (06:55)
[2024-10-30] MEDS ORDERED: Anticoagulant Sod Citrate Soln 3 ML SYR INJ PRN (09:05)
--- NOTE | 2024-10-30 17:32 | NUR ---
SHIFT SUMMARY PT RESTING QUIETLY AT START OF SHIFT. WOKE EASILY FOR CARE. A&O, PLEASANT AND CO-OP. PT MEDICALLY STABLE, WAITING FOR CHAIR TIME AT [facility]. PT TAKEN DOWN TO DIALYSIS THIS AM; TOLERATED WELL. PER UNIT SECRETARY, TODAY WAS DAY 4 IN A ROW; POSSIBLY ABLE TO SKIP TOMORROW. PT UP INDEPENDENTLY IN RM AND TO BTHRM. DENIES FURTHER NEEDS AT THIS TIME. CALL LT IN REACH.
[2024-10-31 03:39] VITALS: BP 117/60
[2024-10-31 04:44] LABS: Hematocrit 25.2 % (37.0-53.0)
[2024-10-31 05:11] LABS: Albumin, Blood 2.3 g/dL (3.4-5.0); Anion Gap 11 mmol/L (3-11); Blood Urea Nitrogen 25 mg/dL (8-24); Bun/Creatinine Ratio 7.4 (12.0-20.0); CO2, Blood 30 mmol/L (21-32); Calcium, Blood 8.3 mg/dL (8.5-10.1); Chloride, Blood 100 mmol/L (98-108); Creatinine, Blood 3.39 mg/dL (0.60-1.20); Glomerular Filtration Rate 18 (60-); Glucose, Blood 97 mg/dL (70-99); Phosphorus, Blood 3.2 mg/dL (2.5-4.9); Potassium, Blood 3.7 mmol/L (3.5-5.5); Sodium, Blood 137 mmol/L (136-145)
--- NOTE | 2024-10-31 05:55 | NUR ---
NOC SUMMARY- NO NEW ISSUES NOTED. PT PAIN MANAGED WELL. PT HAS BEEN RESTING COMFORTABLY. PT CURRENTLY SLEEPING AND BREATHING EASY. CALL LIGHT IN REACH.
[2024-10-31 07:06] VITALS: BP 117/56
--- NOTE | 2024-10-31 10:13 | NUR ---
ASSUMED CARE OF PATIENT. BEDSIDE REPORT COMPLETED; PATIENT LYING SUPINE IN BED AND PARTICIPATED IN BEDSIDE REPORT. REMINDED TO NOT MAINTAIN LYING FLAT >2 HOURS. HOB ELEVATED.
[2024-10-31 14:56] VITALS: BP 130/82
--- NOTE | 2024-10-31 18:37 | NUR ---
END OF SHIFT SUMMARY: A&Ox4. PLEASANT AND COOPERATIVE WITH CARE. CALLS APPROPRIATELY AND IS ABLE TO ADVOCATE NEEDS EFFECTIVELY. AMBULATES INDEPENDENTLY. CONTINENT OF BOWEL AND BLADDER. LBM TODAY. MEDS WHOLE WITH FLUIDS. MEDICATED PRN PAIN x2 TODAY. NO DIALYSIS TODAY. CONTINUES TO WAIT FOR COORDINATION OF CHAIR AT LOCAL DIALYSIS CLINIC. BED IN LOWEST POSITION, CALL LIGHT WITHIN REACH, ALL NEEDS MET. REPORT TO ONCOMING NURSE.
[2024-10-31 20:15] VITALS: BP 96/53
[2024-11-01] VITALS (17 sets, daily range): BP systolic 94–147; BP diastolic 35–93
--- NOTE | 2024-11-01 04:47 | NUR ---
PT HAS BEEN RESTING PEACEFULLY WITH NO COMPLAINTS TONIGHT. PT WANTED PULL UPS FOR URGENCY AND WARM BLANKETS. PT IS NOT IN PAIN AND RUC PORT LOOKS GOOD. PT HAS HAD NORMAL FOR HIM VITALS AND IS IN GOOD SPIRITS TONIGHT. CALL LIGHT IN REACH AND IND IN ROOM.
[2024-11-01 05:18] LABS: Hematocrit 25.4 % (37.0-53.0); Hemoglobin 8.1 g/dL (13.5-17.5)
[2024-11-01 05:58] LABS: Albumin, Blood 2.4 g/dL (3.4-5.0); Anion Gap 12 mmol/L (3-11); Blood Urea Nitrogen 42 mg/dL (8-24); Bun/Creatinine Ratio 9.4 (12.0-20.0); CO2, Blood 27 mmol/L (21-32); Calcium, Blood 8.7 mg/dL (8.5-10.1); Chloride, Blood 101 mmol/L (98-108); Creatinine, Blood 4.49 mg/dL (0.60-1.20); Glomerular Filtration Rate 13 (60-); Glucose, Blood 94 mg/dL (70-99); Magnesium, Blood 1.9 mg/dL (1.6-2.4); Phosphorus, Blood 3.5 mg/dL (2.5-4.9); Potassium, Blood 3.7 mmol/L (3.5-5.5); Sodium, Blood 136 mmol/L (136-145)
[2024-11-01] MEDS ORDERED: Anticoagulant Sod Citrate Soln 3 ML SYR INJ PRN (07:50)
[2024-11-01 10:25] LABS: HEPATITIS B SURFACE ANTIGEN Negative (Negative)
[2024-11-01 14:37] LABS: HBV CORE ANTIBODIES,TOTAL Negative (Negative)
[2024-11-01 15:36] LABS: HEPATITIS A ANTIBODY, IGM Negative (Negative); HEPATITIS B CORE ANTIBODY, IGM Negative (Negative); HEPATITIS B SURFACE ANTIGEN Negative (Negative); HEPATITIS C AB CIA INTERP Negative (Negative); HEPATITIS C ANTIBODY CIA INDEX 0.18 IV
--- NOTE | 2024-11-01 19:20 | NUR ---
END OF SHIFT SUMMARY: A&Ox4. PLEASANT AND COOPERATIVE WITH CARE. CALLS APPROPRIATELY AND IS ABLE TO ADVOCATE NEEDS EFFECTIVELY. AMBULATES INDEPENDENTLY. CONTINENT OF BOWEL AND BLADDER. LBM TODAY. MEDS WHOLE WITH FLUIDS. MEDICATED PRN PAIN x2 TODAY. DIALYSIS TODAY WITH REMOVAL OF 500mL. CONTINUES TO WAIT FOR COORDINATION OF CHAIR AT LOCAL DIALYSIS CLINIC. BED IN LOWEST POSITION, CALL LIGHT WITHIN REACH, ALL NEEDS MET. REPORT TO ONCOMING NURSE.
[2024-11-01] MEDS ORDERED: Mometasone/Formoterol MDI 100/5 mcg 13 GM INH PRN (20:00)
[2024-11-02 04:56] VITALS: BP 106/54
[2024-11-02 05:04] LABS: Hematocrit 25.6 % (37.0-53.0); Hemoglobin 8.1 g/dL (13.5-17.5)
--- NOTE | 2024-11-02 05:35 | NUR ---
FLATWARE MAKER SUMMARY NO CHANGES OVERNIGHT. SEE ASSESSMENT DOCUMENTATION.
[2024-11-02 05:44] LABS: Albumin, Blood 2.3 g/dL (3.4-5.0); Anion Gap 10 mmol/L (3-11); Blood Urea Nitrogen 39 mg/dL (8-24); Bun/Creatinine Ratio 10.1 (12.0-20.0); CO2, Blood 29 mmol/L (21-32); Calcium, Blood 8.7 mg/dL (8.5-10.1); Chloride, Blood 103 mmol/L (98-108); Creatinine, Blood 3.85 mg/dL (0.60-1.20); Glomerular Filtration Rate 16 (60-); Glucose, Blood 100 mg/dL (70-99); Magnesium, Blood 2.2 mg/dL (1.6-2.4); Phosphorus, Blood 3.7 mg/dL (2.5-4.9); Potassium, Blood 3.5 mmol/L (3.5-5.5); Sodium, Blood 138 mmol/L (136-145)
[2024-11-02 07:18] VITALS: BP 110/63
[2024-11-02] MEDS ORDERED: Artificial Tears Opth Oint 7 GM BOTHEYES PRN (14:05)
[2024-11-02 16:09] VITALS: BP 114/53
[2024-11-02] MEDS ORDERED: Peg 400/Hypromellose/Glycerin 15 DROP/ML BTL BOTHEYES PRN (16:35)
--- NOTE | 2024-11-02 18:30 | NUR ---
REPORT RECEIVED VERIFIED PT A/O VERY PLEASENT JUST QUIETLY SITTING IN BED WANTING TO BE DISCHARGED, NO C/O PAIN NO DISTRESS, PT HAD UNEVENTFUL DAY AND WAS INDEPENDANT IN ROOM, PT ABLE TO MAKE NEEDS KNOWN. PT AMBULATED IN IN ROOM AND CLEANING WITH NO EVENTS, WILL CONT TO MONITOR WITH POSSIBLE DISCHARGE IN AM IF CHAIR IS AVAILABLE
[2024-11-02 19:19] VITALS: BP 104/58
[2024-11-03] VITALS (17 sets, daily range): BP systolic 84–128; BP diastolic 39–96
--- NOTE | 2024-11-03 04:41 | NUR ---
SHIFT SUMMARY PATIENT HAD NO ACUTE CHANGES. AXOX 4 AND INDEPENDENT IN ROOM. DENIES CHEST PAIN, SOB, AND N/V. DIALYSIS PORT RIGHT UPPER CHEST. PIV INTACT. VSS/AFEBRILE. COOPERATIVE WITH CARE. CALL LIGHT IN REACH. BED IN LOWEST POSITION. WILL CONTINUE TO MONITOR UNTIL DAY SHIFT NURSE ASSUMES CARE.
[2024-11-03 05:50] LABS: Hemoglobin 8.2 g/dL (13.5-17.5)
[2024-11-03 06:05] LABS: Albumin, Blood 2.3 g/dL (3.4-5.0); Anion Gap 12 mmol/L (3-11); Blood Urea Nitrogen 48 mg/dL (8-24); Bun/Creatinine Ratio 10.3 (12.0-20.0); CO2, Blood 26 mmol/L (21-32); Calcium, Blood 8.4 mg/dL (8.5-10.1); Chloride, Blood 101 mmol/L (98-108); Creatinine, Blood 4.67 mg/dL (0.60-1.20); Glomerular Filtration Rate 12 (60-); Glucose, Blood 102 mg/dL (70-99); Magnesium, Blood 2.2 mg/dL (1.6-2.4); Phosphorus, Blood 4.3 mg/dL (2.5-4.9); Potassium, Blood 3.7 mmol/L (3.5-5.5); Sodium, Blood 135 mmol/L (136-145)
[2024-11-03] MEDS ORDERED: Anticoagulant Sod Citrate Soln 3 ML SYR INJ PRN (07:10)
--- NOTE | 2024-11-03 10:34 | NUR ---
REPORT RECEIVED, VERIFIED. 0830 PT TO DIALYSIS
[2024-11-04 05:17] VITALS: BP 101/62
[2024-11-04 05:27] LABS: Hematocrit 24.7 % (37.0-53.0); Hemoglobin 7.7 g/dL (13.5-17.5)
[2024-11-04 06:03] LABS: Albumin, Blood 2.2 g/dL (3.4-5.0); Anion Gap 12 mmol/L (3-11); Blood Urea Nitrogen 39 mg/dL (8-24); Bun/Creatinine Ratio 9.4 (12.0-20.0); CO2, Blood 27 mmol/L (21-32); Calcium, Blood 8.4 mg/dL (8.5-10.1); Chloride, Blood 103 mmol/L (98-108); Creatinine, Blood 4.14 mg/dL (0.60-1.20); Glomerular Filtration Rate 14 (60-); Glucose, Blood 106 mg/dL (70-99); Magnesium, Blood 2.2 mg/dL (1.6-2.4); Phosphorus, Blood 4.1 mg/dL (2.5-4.9); Potassium, Blood 3.5 mmol/L (3.5-5.5); Sodium, Blood 138 mmol/L (136-145)
[2024-11-04 07:19] VITALS: BP 110/56
[2024-11-04] MEDS ORDERED: Anticoagulant Sod Citrate Soln 3 ML SYR INJ PRN (07:40)
[2024-11-04 15:58] VITALS: BP 102/55
--- NOTE | 2024-11-04 17:26 | NUR ---
NO ACUTE CHANGES PT CONTINUES TO BE AOX4 AND PLEASANT WITH CARE. PT DID NOT HAVE TO DO DIALYSIS TODAY PER DIALYSIS NURSE. PT WATCHING FOOTBALL AND IS INDEPENEDENT TO RESTROOM. ABLE TO MAKE NEEDS KNOWN AND USES CALL LIGHT APPROPRIATELY. CALL LIGHT WITHIN REACH WILL CONTINUE TO MONITOR.
[2024-11-04 19:53] VITALS: BP 91/47
[2024-11-05] VITALS (12 sets, daily range): BP systolic 86–116; BP diastolic 39–66
--- NOTE | 2024-11-05 04:20 | NUR ---
SHIFT SUMMARY PATIENT HAD NO ACUTE CHANGES. AXOX 4 AND INDEPENDENT IN ROOM. DENIES CHEST PAIN, SOB, AND N/V. VSS/AFEBRILE. WATCHING TV FIRST HALF OF SHIFT. ABLE TO MAKE NEEDS KNOWN. CALL LIGHT IN REACH. BED IN LOWEST POSITION. WILL CONTINUE TO MONITOR UNTIL DAY SHIFT NURSE ASSUMES CARE.
[2024-11-05 05:18] LABS: Hematocrit 24.2 % (37.0-53.0); Hemoglobin 7.8 g/dL (13.5-17.5)
[2024-11-05 05:45] LABS: Albumin, Blood 2.3 g/dL (3.4-5.0); Anion Gap 13 mmol/L (3-11); Blood Urea Nitrogen 49 mg/dL (8-24); Bun/Creatinine Ratio 10.7 (12.0-20.0); CO2, Blood 26 mmol/L (21-32); Calcium, Blood 8.6 mg/dL (8.5-10.1); Chloride, Blood 101 mmol/L (98-108); Creatinine, Blood 4.57 mg/dL (0.60-1.20); Glomerular Filtration Rate 13 (60-); Glucose, Blood 99 mg/dL (70-99); Magnesium, Blood 2.2 mg/dL (1.6-2.4); Phosphorus, Blood 4.4 mg/dL (2.5-4.9); Potassium, Blood 3.6 mmol/L (3.5-5.5); Sodium, Blood 136 mmol/L (136-145)
[2024-11-05] MEDS ORDERED: Anticoagulant Sod Citrate Soln 3 ML SYR INJ PRN (07:40)
--- NOTE | 2024-11-05 08:21 | NUR ---
SPOKE TO DIALYSIS CLINIC AND PT HAS CHAIR TIME AT [facility] //SAT AT 545AM. PT CAN GO FOR INTAKE EITHER TODAY OR TOMORROW AT CLINIC TO ESTABLISH TREATMENT PLAN.
[2024-11-05] MEDS ORDERED: ALBU8HFA2 INH (13:39)
[2024-11-05] MEDS ORDERED: DULERA 100 MCG/13 GM INH (13:40)
== END 2024-11-05 14:26 | disposition home or self-care (01) | DRG 674 ==
LOC: ER 13:08 → MEDS 14:53 → EDBEDREQ 14:54 → MEDS 15:04
PROVIDERS: Internal Medicine; Internal Medicine Nephrology; Physician Assistant; ADMIT Hospitalist
PROC: 0JH63XZ Insertion of Tunneled Vascular Access Device into Chest Subcutaneous Tissue and Fascia, Percutaneous Approach (ICD-10-PCS; principal; 2024-10-26)
PROC: 02HV33Z Insertion of Infusion Device into Superior Vena Cava, Percutaneous Approach (ICD-10-PCS; 2024-10-26)
PROC: B518ZZA Fluoroscopy of Superior Vena Cava, Guidance (ICD-10-PCS; 2024-10-26)
PROC: B548ZZA Ultrasonography of Superior Vena Cava, Guidance (ICD-10-PCS; 2024-10-26)
PROC: 5A1D70Z Performance of Urinary Filtration, Intermittent, Less than 6 Hours Per Day (ICD-10-PCS; 2024-10-26)
DX: E11.22 Type 2 diabetes mellitus with diabetic chronic kidney disease (principal); E87.1 Hypo-osmolality and hyponatremia; N18.6 End stage renal disease; I13.2 Hypertensive heart and chronic kidney disease with heart failure and with stage 5 chronic kidney disease, or end stage renal disease; N25.81 Secondary hyperparathyroidism of renal origin; Z88.8 Allergy status to other drugs, medicaments and biological substances; E87.6 Hypokalemia; I50.9 Heart failure, unspecified; Z79.899 Other long term (current) drug therapy; J44.9 Chronic obstructive pulmonary disease, unspecified; D63.1 Anemia in chronic kidney disease; Z87.891 Personal history of nicotine dependence; Z79.4 Long term (current) use of insulin
CPT/HCPCS: 36415; 36558; 71046; 76937; 80053; 80069; 80074; 82947; 83036; 83735; 84100; 85014; 85018; 85025; 86704; 87340; 94760; 99152; 99283; A9270; C1750; C1769; C1894; J0881; J1644; J2250; J3010; J7030; J7050

== ENCOUNTER 2025-02-11 04:17 | Emergency (ER) | payer OTHER ==
[~2025-02-11] VITALS: Ht 172.7 cm; Wt 79.4 kg
[~2025-02-11 04:17] MED LIST changes: +ALBU8HFA2 INH; +DULERA 100 MCG/13 GM INH; +SODBIC650 PO; +TAMS.4ER PO
[2025-02-11] MEDS ORDERED: Acetaminophen 325 MG TABLET PO ONE (05:35)
[2025-02-11 06:00] VITALS: BP 133/56
[2025-02-11] MEDS ORDERED: AMOCLA875 PO (06:06)
== END 2025-02-11 06:40 | disposition home or self-care (01) ==
LOC: ER 04:17
DX: H66.91 Otitis media, unspecified, right ear (principal); I10 Essential (primary) hypertension; E11.9 Type 2 diabetes mellitus without complications; Z88.6 Allergy status to analgesic agent; Z79.2 Long term (current) use of antibiotics; Z79.899 Other long term (current) drug therapy; Z87.891 Personal history of nicotine dependence
CPT/HCPCS: 99282; A9270

== ENCOUNTER 2025-03-04 19:28 | Emergency (ER) | payer OTHER ==
[~2025-03-04] VITALS: Ht 165.1 cm; Wt 81.7 kg
[~2025-03-04 19:28] MED LIST changes: +AMOCLA875 PO
[2025-03-04 21:34] LABS: BASOPHILS ABSOLUTE AUTO 0.06 K/mm3 (0.00-0.23); BASOPHILS PERCENT AUTO 1 % (0-2); EOSINOPHILS ABSOLUTE AUTO 0.01 K/mm3 (0.00-0.68); EOSINOPHILS PERCENT AUTO 0 % (0-6); Hemoglobin 11.6 g/dL (13.5-17.5); IMMATURE GRAN ABSOLUTE AUTO 0.04 K/mm3 (0.00-0.10); IMMATURE GRAN PERCENT AUTO 0 % (0-1); LYMPHOCYTES ABSOLUTE AUTO 1.25 K/mm3 (0.84-5.20); LYMPHOCYTES PERCENT AUTO 12 % (21-46); MONOCYTES ABSOLUTE AUTO 1.15 K/mm3 (0.16-1.47); MONOCYTES PERCENT AUTO 11 % (4-13); Mean Corpuscular HGB 30.4 pg (26.0-34.0); Mean Corpuscular HGB Conc 33.1 g/dL (31.5-36.5); Mean Corpuscular Volume 92 fL (80-100); Mean Platelet Volume 8.5 fL (9.1-12.4); NEUTROPHILS ABSOLUTE AUTO 7.78 K/mm3 (1.96-9.15); NEUTROPHILS PERCENT AUTO 76 % (41-73); Platelet Count 310 K/mm3 (150-400); Red Blood Cell Count 3.82 M/mm3 (4.30-5.90); White Blood Cell Count 10.29 K/mm3 (4.00-11.30)
[2025-03-04 21:46] LABS: Albumin, Blood 2.4 g/dL (3.4-5.0); Albumin/Globulin Ratio 0.5 (0.8-1.8); Bilirubin, Total 0.7 mg/dL (0.1-1.0); Bun/Creatinine Ratio 12.7 (12.0-20.0); Creatinine, Blood 4.17 mg/dL (0.60-1.20); Globulin, Blood 5.1 g/dL (2.2-4.0); Potassium, Blood 3.7 mmol/L (3.5-5.5); Total Protein, Blood 7.5 g/dL (6.4-8.2)
[2025-03-04 23:25] LABS: Source, Urine Straight Cath
[2025-03-04 23:30] LABS: Bilirubin, Urine Neg (Neg); Blood, Urine 5+ (Neg); Glucose Qualitative, Urine Neg (Neg); Ketones, Urine Neg (Neg); Leukocyte Esterase, Urine 3+ (Neg); Nitrite, Urine Neg (Neg); Protein, Urine 3+ (Neg); Urobilinogen, Urine NORM (Normal); pH, Urine 6.5 (5.0-8.0)
[2025-03-04 23:57] LABS: Appearance, Urine Cloudy (Clear); Color, Urine Yellow (P-Yellow); Red Blood Cells, Urine 0-2 /hpf (0-2); Squamous Epithelial Cells Not Seen /hpf (Few); White Blood Cells, Urine TNTC /hpf (0-5)
[2025-03-04 23:58] LABS: Bacteria Many /hpf
[2025-03-05] MEDS ORDERED: Ampicillin Sod/Sulbactam Sod 3 GM in NS 100 ML IV ONE (01:35)
[2025-03-05] MEDS ORDERED: FentaNYL Citrate 50 MCG/ML 2 ML Injection IV PRN (02:30)
[2025-03-05] MEDS ORDERED: NS 1,000 ML IV SCH (04:50)
[2025-03-05 05:34] VITALS: BP 129/60
== END 2025-03-05 06:45 | disposition short-term general hospital (02) ==
LOC: ER 19:28
PROVIDERS: Emergency Medicine; Student in an Organized Health Care Education/Training Program
DX: I72.0 Aneurysm of carotid artery (principal); N39.0 Urinary tract infection, site not specified; I12.0 Hypertensive chronic kidney disease with stage 5 chronic kidney disease or end stage renal disease; E11.22 Type 2 diabetes mellitus with diabetic chronic kidney disease; N18.6 End stage renal disease; E86.0 Dehydration; Z99.2 Dependence on renal dialysis; Z88.8 Allergy status to other drugs, medicaments and biological substances; Z79.899 Other long term (current) drug therapy; Z87.891 Personal history of nicotine dependence
CPT/HCPCS: 36415; 51701; 70490; 70496; 70498; 80053; 81001; 83605; 85025; 87040; 87077; 87086; 87147; 87186; 93005; 93010; 96365-59; 96375-59; 99285-25; J0295; J3010; J7030; Q9967